=== PATIENT | female | born 1940 | race Caucasian/White ===

== ENCOUNTER → 2017-12-03 | Outpatient (CLI) | payer OTHER, MEDICARE | LOC: CIMAGING 13:43 | PROVIDERS: ATTEND Registered Nurse | DX: T14.90XA Injury, unspecified, initial encounter (principal); W19.XXXA Unspecified fall, initial encounter | CPT/HCPCS: 73502-PO ==

== ENCOUNTER 2018-06-14 10:54 | Inpatient (IN) | payer OTHER, MEDICARE ==
--- NOTE | 2018-06-14 15:49 | GHP ---
POST ADMISSION PHYSICIAN EVALUATION AND REHABILITATION TREATMENT PLAN. DATE OF ADMISSION: 06/14/2018 DATE OF EVALUATION: 06/14/2018. TIME OF EVALUATION: 1405 REFERRING FACILITY: [facility]. IMPAIRMENT GROUP: 1.3. DATE OF ONSET: 06/10/2018. REFERRING PHYSICIAN: Dr. Bundy. CONSULTING PHYSICIANS: Neurologist, Dr. Bowers. REHABILITATION DIAGNOSIS: Cerebrovascular accident with left upper and lower extremity weakness. ETIOLOGIC DIAGNOSIS: Bilateral involvement. HISTORY OF PRESENT ILLNESS: This patient had a 2-3 day history of left upper and lower extremity weakness and falls out of bed. She was brought to [facility] on 06/10/2018. There, an MRI of the brain showed bilateral patchy multifocal infarcts with concern for an embolic source. She had a CT angiogram of the head and neck, and there was no stenosis of the carotid or intracranial arteries. A transthoracic echo was done which showed mild atrial and tricuspid regurgitation, but was otherwise a normal study with no embolic source. She did not have atrial fibrillation on telemetry while in the hospital. In the hospital, losartan was increased from 50 mg daily to 100 mg daily. Aspirin was continued. She was started on a statin as well as clopidogrel, which is to be continued for 3-4 weeks. She was diagnosed with a urinary tract infection and is discharged with cephalexin for 5 more days. She was also started on amlodipine at 5 mg daily for improved blood pressure control. She was otherwise medically stable and ready for rehabilitation. STUDIES AND LABS DURING HER STAY: CBC was normal on 06/10/2018, and 2017. Hemoglobin A1c was 5.9, which is slightly elevated. Lipid panel showed a cholesterol of 239 and HDL of 52 and LDL of 155. Triglycerides were also high at 158. Magnesium was normal. PT and PTT were normal. TSH was normal at 0.86. There was a urinalysis done, which showed a moderate leukocyte esterase, and positive nitrite. There was 2+ bacteria and 21-30 white blood cells seen on microscopic examination. Brain imaging was as discussed in History of Present Illness. Additionally, she had ischemic white matter changes. PRECAUTIONS: She is a fall risk and she has aspiration precautions. ACTIVE COMORBIDITIES: She has a tier 3 comorbidity of hemiparesis. She otherwise has no active tier 1, tier 2, or tier 3 comorbidities. PAST MEDICAL HISTORY: 1. Hypothyroidism. 2. Dyslipidemia. 3. Depression. 4. Hypertension. 5. Bunions. 6. Question of dementia. PAST SURGICAL HISTORY: She has had bilateral bunion surgery and a hysterectomy. PRE-HOSPITAL MEDICATIONS: 1. Losartan 50 mg p.o. daily. 2. Rivastigmine transdermal 9.5 mg per 24 hours daily. 3. Gabapentin 100 mg p.o. daily. 4. Levothyroxine 88 mcg p.o. daily. 5. Venlafaxine 75 mg p.o. daily. 6. Propranolol 160 mg p.o. daily. 7. Red yeast rice 1200 mg p.o. daily. ADMISSION MEDICATIONS: 1. Amlodipine 5 mg p.o. daily. 2. Aspirin 81 mg p.o. daily. 3. Atorvastatin 40 mg p.o. daily. 4. Cephalexin 500 mg twice daily for 5 more days. 5. Clopidogrel 75 mg p.o. daily. 6. Losartan 100 mg p.o. daily. 7. Propranolol 160 mg p.o. daily. 8. Rivastigmine transdermal 9.5 mg per 24 hours daily. 9. Gabapentin 100 mg p.o. daily. 10. Levothyroxine 88 mcg p.o. daily. 11. Venlafaxine XR 75 mg daily. ALLERGIES: There are no known drug allergies. PSYCHOSOCIAL HISTORY: She is and lives with her at [facility]. She had 1 daughter who of melanoma at the age of 41. She is a nonsmoker. Her has 3 children and multiple grandchildren and great-grandchildren, many of whom are local. 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 FAMILY HISTORY: Her mother of old age in her 90s and her father of a suicide at age 19. REVIEW OF SYSTEMS: She reports right knee pain. It does not bother her when she bears weight, but is tender on the medial side. She reports an episode of stool incontinence while she was in the intensive care unit and subsequently had a normal bowel movement after receiving a suppository. She is aware of left -sided weakness. She denies facial weakness, numbness or tingling of the face or the extremities, headache, or vision changes. She denies cough or dyspnea. She denies chest pain or palpitations. She denies nausea, vomiting, diarrhea, or constipation. She denies dysuria or urinary frequency. Otherwise, a 10- point review of systems is negative. PHYSICAL EXAMINATION: VITAL SIGNS: Vitals are not yet available in the chart. However, systolic blood pressure was 140, heart rate was in the 60s, and oxygen saturation was 92% on room air. Her weight is 76.2 kg for a body mass index of 28.8. GENERAL: This is an overweight-appearing woman, dressed in street clothes, lying in bed, cooperative and in no acute distress. HEENT: Extraocular movements are intact. Pupils are equal, round, reactive to light. Mucous members are moist. Dentition is in good condition. She has an uncrowded airway, Mallampati class 2. NECK: Supple. HEART: There is a regular rate and rhythm with no murmurs, rubs, or gallops. LUNGS: Clear to auscultation bilaterally. ABDOMEN: Soft, nontender, nondistended with normoactive bowel sounds and no hepatosplenomegaly. EXTREMITIES: There is no cyanosis or clubbing. There is 1+ edema bilaterally, pretibial. She is tender to palpation on the distal medial right knee over the medial proximal tibia. There is no knee effusion. NEUROLOGIC: She is alert and oriented x3. Cranial nerves 2-12 are grossly intact. Strength is 0/5 at the left shoulder shrug and deltoid, as well as the right hip flexor and right foot dorsiflexion. Strength is 4/5 at the right biceps and 4/5 at the right handgrip. It is 3/5 for the right knee extension. Strength is 5/5 overall on the left side. Sensation is intact to light touch and there is no extinction to double simultaneous stimulation. Deep tendon reflexes are 2+ bilaterally at the biceps, patellar, and Achilles tendons. Plantar reflex is indeterminate bilaterally. CURRENT LEVEL OF FUNCTION: Per the preadmission screen, she was on a regular diet with thin liquids, but she was to be upright 90 degrees for all p.o. intake and remain upright for 30-60 minutes after meals. She had modified independence for feeding after setup. Dressing: The lower body required total assist. Toileting: Required total assistance for perineal hygiene and clothing management. She was noted to be incontinent of urine. Bed mobility required minimal assist to advance her left lower extremity, [id number] transfers were done with contact guard assist and [id number] transfers with minimal assist. She used a Mariah Stedy. Balance required standby assist to contact guard assist. Endurance was fair. She was unable to ambulate. Communication and cognition were considered to be normal. On today's exam, there are no significant changes from the preadmission screen. IMPRESSION: This is a 78-year-old woman who suffered a bilateral cerebrovascular accident, likely occurring over several days with falls at home over 2 days. She was brought to the hospital and was found to have a cerebrovascular accident as described above. Her most prominent symptoms were left upper and lower extremity weakness. In the hospital, she had titration and addition of blood pressure medications, she was started on atorvastatin, and clopidogrel was as added to her aspirin therapy. She was treated for a likely urinary tract infection, though I do not have culture results. However, she had a suggestive urinalysis. She was otherwise medically stabilized and ready for inpatient rehabilitation. Her goal is to complete a rehabilitation stay and then return home to independent living with her . For a safe discharge, it is anticipated that she will become continent of urine. She will tolerate a regular diet. She will have insight into her deficits using appropriate compensatory strategies. She will achieve modified independence for eating and grooming. She may continue to require supervision or assistance for dressing, bathing, transfers and ambulation for short distances. It is likely her primary mobility will be by wheelchair. There will need to be family training. She will have therapy with physical therapy, occupational therapy, and speech and language pathology for 60 minutes per day for each discipline on 5-7 days of the week. Her expected duration of stay is 10-14 days. It is expected that upon discharge she will continue to benefit from home health services including nursing, speech and language pathology, occupational therapy, and physical therapy. She will also benefit from a stroke support group. PLAN: 1. Cerebrovascular accident with left upper and lower extremity weakness. PT and OT to optimize mobility and activities of daily living. 2. Dysphagia to be assessed and treated per Speech and Language Pathology. 3. Secondary stroke prophylaxis. Continue aspirin and clopidogrel together for 3-4 weeks with followup with Dr. Aureliano Bowers. Continue lipid control and blood pressure control. 4. Hypertension with addition of amlodipine, titration of losartan, and continuation of propranolol. Blood pressure will be monitored. Goal is less than 140/90. Medications will be adjusted as needed. 5. Dyslipidemia. Continue atorvastatin. 6. Question of cognitive impairment. Continue rivastigmine transdermal. She will have further assessment per Speech and Language Pathology. 7. Hypothyroidism, continue levothyroxine. 8. Depression. Continue venlafaxine. Hesitate to initiate fluoxetine as per the Flame trial for hemiplegic stroke as depression has been stable on venlafaxine and she is asymptomatic at present and would not like to destabilize her emotional equilibrium. SSRI plus norepinephrine effects of venlafaxine may also enhance neuro recovery. Will consider further discussion with the patient and her . She reports that she takes gabapentin at 100 mg at HS to help calm her. 9.. Right knee pain, possibly consistent with anserine bursitis. She might benefit from icing and this has been ordered on a p.r.n. basis. Also ordered p.r.n. acetaminophen. 10. Prophylaxis. Ordered enoxaparin as she has elevated DVT risk due to left- sided weakness and reduced mobility. As she is also on aspirin and clopidogrel , ordered pantoprazole for GI protection. FOLLOWUP: 1. She has a cardiac event monitor in place and will follow up with Cardiology to evaluate for occult atrial fibrillation. She will follow up with neurologist , Dr. Arueliano Bowers, in 3-4 weeks, or with his colleagues at [facility]. Her primary care doctor is Dr. Bridger Nobles, with whom she can follow up after she discharges from inpatient rehabilitation. /[id number]/MODL MTDD
[2018-06-14] MEDS: ATORVASTATIN CALCIUM 40 MG TAB PO SCH (20:19)
[2018-06-14] MEDS: GABAPENTIN 100 MG CAP PO SCH (20:20)
[2018-06-14] MEDS: CEPHALEXIN 500 MG CAP PO SCH (20:20)
[2018-06-15] MEDS: LEVOTHYROXINE 88 MCG TAB PO SCH (05:33)
[2018-06-15] MEDS: ENOXAPARIN 40 MG/0.4 ML SYR SC SCH (07:12)
[2018-06-15] MEDS: LOSARTAN POTASSIUM 50 MG TAB PO SCH (08:49)
[2018-06-15] MEDS: PANTOPRAZOLE SODIUM 40 MG TAB PO SCH (08:49)
[2018-06-15] MEDS: VENLAFAXINE XR 75 MG CAP PO SCH (08:49)
[2018-06-15] MEDS: ASPIRIN 81 MG CHEWABLE TAB PO SCH (08:49)
[2018-06-15] MEDS: CEPHALEXIN 500 MG CAP PO SCH ×2 (08:50→20:43)
[2018-06-15] MEDS: amLODIPine BESYLATE 5 MG TAB PO SCH (08:50)
[2018-06-15] MEDS: CLOPIDOGREL BISULFATE 75 MG TAB PO SCH (08:50)
[2018-06-15] MEDS ORDERED: GABAPENTIN 100 MG CAP PO SCH (09:00)
--- NOTE | 2018-06-15 11:55 | PDOREHIP ---
Admission [facility] - Admission - 3 Day Assessment Period Admission Date/Day 1: 06/14/18 Day 2: 06/15/18 Day 3: 06/16/18 - Active Diagnoses Comorbidities and Co-existing Conditions at Admission: 06127. None of the Above - Skin Conditions # Stage 1 Pressure Ulcers-Admission: 0 # Stage 2 Pressure Ulcers-Admission: 0 # Stage 3 Pressure Ulcers-Admission: 0 # Stage 4 Pressure Ulcers-Admission: 0 # Unstageable Pressure Ulcers (Non-remove Dress)-Admission: 0 # Unstageable Pressure Ulcers (Slough/Eschar)-Admission: 0 # Unstageable Pressure Ulcers (Deep Tissue Injury)-Admission: 0
--- NOTE | 2018-06-15 12:04 | SOAPPROG ---
SOAP Progress Note Assessment/Plan: Assessment: Cerebrovascular accident with left upper and left lower extremity weakness. She is getting some return of motor function in both the left upper and left lower extremity muscles. Physical occupational therapy to optimize mobility and activities of daily living. Dysphagia-pending evaluation with speech and language pathology. Secondary stroke prophylaxis. Continue aspirin and clopidogrel together for 3- 4 weeks and follow-up with Dr. Aureliano August. Continue lipid control. Continue blood pressure control. Hypertension. Continue amlodipine. Continue losartan. Continue propranolol. Blood pressures monitored Q shift. Goals less than 140/90.Blood pressure 136/65. Dyslipidemia. Continue atorvastatin Question of cognitive impairment-will have better assessment of this once POULTRY PICKER completes evaluation. Continue Rivastigmine transdermal. Hypothyroidism. Continue levothyroxine Depression. Continue Venlafaxine. Dr. Cole indicated on his admission H&P that he is hesitant to initiate fluoxetine as per the flame trial for hemiplegic stroke as depression has been stable on Venlafaxine and she is asymptomatic at present and would not like to destabilized her out emotional equilibrium. Will continue to monitor for depression as patient does have a depressed affect today. Will ask speech and language pathology opinion as to whether depression may decreased cognitive function. Right knee pain. Patient did not complain of right knee pain this morning but will continue to follow for possible anserine bursitis. Tylenol p.r.n.. Ice 20 min medial aspect right knee p.r.n.. Prophylaxis. Enoxaparin started yesterday by Dr. Cole as patient is at increased DVT risk due to left-sided zamzam paresis and reduced mobility. Since she is on aspirin and clopidogrel, pantoprazole initiated yesterday. Urinary tract infection-continue Keflex Neuropathic pain-continue Keflex Follow-up: She has a cardiac event monitor in place and will follow up with Cardiology to evaluate any occult atrial fibrillation. She will follow up with neurologist, Dr. Aureliano Bowers in 3-4 weeks or with his colleagues at [facility]. Her primary doctor is Dr. Bridger Nobles who she can follow up with after discharge from inpatient rehab Plan: 06/15/18 12:06 18 12:17 06/15/18 12:17 Subjective: Patient states"I can not believe I had a stroke"she reports weakness in the left arm and leg. She denies headache. Denies neck pain. Denies shoulder girdle pain. She does not report UTI type symptoms. Objective: Vital Signs Temp Pulse Resp BP Pulse Ox 36.6 C 62 16 136/65 H 94 06/15/18 05:52 06/15/18 05:52 06/15/18 05:52 06/15/18 08:50 06/15/18 05:52 06/14/18 06/15/18 06/16/18 05:59 05:59 05:59 Intake Total 820 Balance 820 Physical Exam - Physical Exam General Appearance: WD/WN, alert, no apparent distress, other (Sitting in wheelchair. Erect posture) Neck: non-tender, full range of motion Respiratory: lungs clear, normal breath sounds Cardiac/Chest: No edema Abdomen: normal bowel sounds, non-tender, soft, other (No suprapubic tenderness) Skin: warm/dry Extremities: normal range of motion (Limited left glenohumeral and elbow range of motion secondary to hemiparesis. Normal passive left shoulder forward flexion, abduction, internal/external rotation), No swelling, No Radha's sign Neuro/Psych: motor weakness (Left hemiparesis with greater strength distally in left upper extremity can almost fully extend the left wrist. 3-/5 left hip flexors 3+/5 left ankle dorsiflexors), depressed affect ICD10 Worksheet Patient Problems: Problems Problem Status Onset CVA (cerebral vascular accident) Acute
[2018-06-15] MEDS: PROPRANOLOL HCL 160 MG PO SCH (15:53)
[2018-06-15] MEDS: RIVASTIGMINE TD SCH (15:54)
[2018-06-15] MEDS: ATORVASTATIN CALCIUM 40 MG TAB PO SCH (20:43)
[2018-06-15] MEDS: GABAPENTIN 100 MG CAP PO SCH (20:43)
[2018-06-16] MEDS: LEVOTHYROXINE 88 MCG TAB PO SCH (06:12)
[2018-06-16] MEDS: ASPIRIN 81 MG CHEWABLE TAB PO SCH (09:20)
[2018-06-16] MEDS: CEPHALEXIN 500 MG CAP PO SCH ×2 (09:20→19:46)
[2018-06-16] MEDS: amLODIPine BESYLATE 5 MG TAB PO SCH (09:20)
[2018-06-16] MEDS: PANTOPRAZOLE SODIUM 40 MG TAB PO SCH (09:20)
[2018-06-16] MEDS: LOSARTAN POTASSIUM 50 MG TAB PO SCH (09:20)
[2018-06-16] MEDS: CLOPIDOGREL BISULFATE 75 MG TAB PO SCH (09:20)
[2018-06-16] MEDS: VENLAFAXINE XR 75 MG CAP PO SCH (09:20)
[2018-06-16] MEDS: ENOXAPARIN 40 MG/0.4 ML SYR SC SCH (09:21)
[2018-06-16] MEDS: RIVASTIGMINE TD SCH (09:27)
[2018-06-16] MEDS: PROPRANOLOL HCL 160 MG PO SCH (09:28)
--- NOTE | 2018-06-16 09:30 | SOAPPROG ---
SOAP Progress Note Assessment/Plan: Assessment: Cerebrovascular accident with left upper and left lower extremity weakness. She is getting some return of motor function in both the left upper and left lower extremity muscles. She is getting some return of her left elbow flexors and external rotators. Hopefully she will begin to get some return of her left deltoid. Physical occupational therapy to optimize mobility and activities of daily living. Physical therapy to address left ankle plantar flexor tone. She may benefit from electrical stimulation of the shoulder girdle muscles and biceps. Will discuss with physical therapy. Dysphagia-pending evaluation with speech and language pathology. Secondary stroke prophylaxis. Continue aspirin and clopidogrel together for 3- 4 weeks and follow-up with Dr. Aureliano August. Continue lipid control. Continue blood pressure control. Hypertension. Continue amlodipine. Continue losartan. Continue propranolol. Blood pressures monitored Q shift. Goals less than 140/90.Blood pressure 06/16 137/82. Dyslipidemia. Continue atorvastatin Question of cognitive impairment-will have better assessment of this once PHYSICAL THERAPIST CENTER MANAGER completes evaluation. Continue Rivastigmine transdermal. Hypothyroidism. Continue levothyroxine Depression. Continue Venlafaxine. Dr. Cole indicated on his admission H&P that he is hesitant to initiate fluoxetine as per the flame trial for hemiplegic stroke as depression has been stable on Venlafaxine and she is asymptomatic at present and would not like to destabilize her out emotional equilibrium. Will continue to monitor for depression as patient does have a depressed affect today. Will ask speech and language pathology opinion as to whether depression may decreased cognitive function. Right knee pain. Patient did not complain of right knee pain this morning but will continue to follow for possible anserine bursitis. Tylenol p.r.n.. Ice 20 min medial aspect right knee p.r.n.. Prophylaxis. Enoxaparin started by Dr. Cole as patient is at increased DVT risk due to left-sided zamzam paresis and reduced mobility. Since she is on aspirin and clopidogrel, pantoprazole initiated yesterday. Urinary tract infection-continue Keflex Neuropathic pain-continue gabapentin Follow-up: She has a cardiac event monitor in place and will follow up with Cardiology to evaluate any occult atrial fibrillation. She will follow up with neurologist, Dr. Aureliano Bowers in 3-4 weeks or with his colleagues at [facility]. Her primary doctor is Dr. Bridger Nobles who she can follow up with after discharge from inpatient rehab Subjective: She reports frustration over lack of improvement in left upper extremity strength. She denies left upper extremity or left lower extremity pain. Denies left shoulder girdle pain. Objective: Vital Signs Temp Pulse Resp BP Pulse Ox 36.7 C 69 16 142/75 H 96 06/16/18 06:56 06/16/18 06:56 06/16/18 06:56 06/16/18 09:20 06/16/18 06:56 06/15/18 06/16/18 06/17/18 05:59 05:59 05:59 Intake Total 820 500 Output Total 100 Balance 820 400 Physical Exam - Physical Exam General Appearance: WD/WN, alert, no apparent distress Respiratory: lungs clear, normal breath sounds Abdomen: normal bowel sounds, non-tender, soft Skin: warm/dry Extremities: No swelling, No Radha's sign Neuro/Psych: motor weakness (Left hemiparesis affecting left lower extremity greater than left upper extremity. She is able to actively dorsiflex the left wrist and fingers to a lesser extent. She does have antigravity elbow flexion and can externally rotate the left shoulder when the elbow is flexed in place that side. She has not had any return of her anterior middle deltoid. Left hip flexors 2-/5, left quadriceps 2+ 3-/5 slight increase in left plantar flexor tone.) ICD10 Worksheet Patient Problems: Problems Problem Status Onset CVA (cerebral vascular accident) Acute
[2018-06-16] MEDS: DICLOFENAC SODIUM 50 MG TAB PO SCH ×2 (14:31→19:46)
[2018-06-16] MEDS: GABAPENTIN 100 MG CAP PO SCH (19:45)
[2018-06-16] MEDS: ATORVASTATIN CALCIUM 40 MG TAB PO SCH (19:46)
[2018-06-17] MEDS: LEVOTHYROXINE 88 MCG TAB PO SCH (06:28)
[2018-06-17] MEDS: CLOPIDOGREL BISULFATE 75 MG TAB PO SCH (08:38)
[2018-06-17] MEDS: ASPIRIN 81 MG CHEWABLE TAB PO SCH (08:39)
[2018-06-17] MEDS: PANTOPRAZOLE SODIUM 40 MG TAB PO SCH (08:39)
[2018-06-17] MEDS: VENLAFAXINE XR 75 MG CAP PO SCH (08:39)
[2018-06-17] MEDS: CEPHALEXIN 500 MG CAP PO SCH ×2 (08:39→20:56)
[2018-06-17] MEDS: DICLOFENAC SODIUM 50 MG TAB PO SCH ×2 (08:39→20:57)
[2018-06-17] MEDS: ENOXAPARIN 40 MG/0.4 ML SYR SC SCH (08:39)
[2018-06-17] MEDS: LOSARTAN POTASSIUM 50 MG TAB PO SCH (08:43)
[2018-06-17] MEDS: amLODIPine BESYLATE 5 MG TAB PO SCH (08:43)
[2018-06-17] MEDS: PROPRANOLOL HCL 160 MG PO SCH (08:51)
[2018-06-17] MEDS: RIVASTIGMINE TD SCH (09:25)
[2018-06-17] MEDS: OXYBUTYNIN CHLORIDE 5 MG TAB PO SCH ×2 (17:12→20:57)
[2018-06-17] MEDS: ATORVASTATIN CALCIUM 40 MG TAB PO SCH (20:56)
[2018-06-17] MEDS: GABAPENTIN 100 MG CAP PO SCH (20:56)
[2018-06-18] MEDS: LEVOTHYROXINE 88 MCG TAB PO SCH (05:41)
[2018-06-18] MEDS: CLOPIDOGREL BISULFATE 75 MG TAB PO SCH (08:05)
[2018-06-18] MEDS: DICLOFENAC SODIUM 50 MG TAB PO SCH ×2 (08:05→20:39)
[2018-06-18] MEDS: PANTOPRAZOLE SODIUM 40 MG TAB PO SCH (08:06)
[2018-06-18] MEDS: OXYBUTYNIN CHLORIDE 5 MG TAB PO SCH ×3 (08:06→20:50)
[2018-06-18] MEDS: CEPHALEXIN 500 MG CAP PO SCH ×2 (08:06→20:39)
[2018-06-18] MEDS: amLODIPine BESYLATE 5 MG TAB PO SCH (08:07)
[2018-06-18] MEDS: VENLAFAXINE XR 75 MG CAP PO SCH (08:07)
[2018-06-18] MEDS: LOSARTAN POTASSIUM 50 MG TAB PO SCH (08:09)
[2018-06-18] MEDS: ENOXAPARIN 40 MG/0.4 ML SYR SC SCH (08:09)
[2018-06-18] MEDS: ASPIRIN 81 MG CHEWABLE TAB PO SCH (08:09)
[2018-06-18] MEDS: RIVASTIGMINE TD SCH (08:09)
[2018-06-18] MEDS: PROPRANOLOL HCL 160 MG PO SCH (08:11)
--- NOTE | 2018-06-18 12:44 | HOSPPROG ---
Hospitalist Progress Note Assessment/Plan: Cerebrovascular accident with left upper and left lower extremity weakness. She is getting some return of motor function in both the left upper and left lower extremity muscles. She is getting some return of her left elbow flexors and external rotators. Hopefully she will begin to get some return of her left deltoid. Physical occupational therapy to optimize mobility and activities of daily living. Physical therapy to address left ankle plantar flexor tone. She may benefit from electrical stimulation of the shoulder girdle muscles and biceps. Will discuss with physical therapy. Dysphagia-pending evaluation with speech and language pathology. Secondary stroke prophylaxis. Continue aspirin and clopidogrel together for 3- 4 weeks and follow-up with Dr. Aureliano August. Continue lipid control. Continue blood pressure control. Hypertension. Continue amlodipine. Continue losartan. Continue propranolol. Blood pressures monitored Q shift. Goals less than 140/90.Blood pressure 06/16 137/82. Dyslipidemia. Continue atorvastatin Question of cognitive impairment-will have better assessment of this once DRUM OPERATOR completes evaluation. Continue Rivastigmine transdermal. Hypothyroidism. Continue levothyroxine Depression. Continue Venlafaxine. Dr. Cole indicated on his admission H&P that he is hesitant to initiate fluoxetine as per the flame trial for hemiplegic stroke as depression has been stable on Venlafaxine and she is asymptomatic at present and would not like to destabilize her out emotional equilibrium. Will continue to monitor for depression as patient does have a depressed affect today. Will ask speech and language pathology opinion as to whether depression may decreased cognitive function. Right knee pain. Patient did not complain of right knee pain this morning but will continue to follow for possible anserine bursitis. Tylenol p.r.n.. Ice 20 min medial aspect right knee p.r.n.. * getting better today Prophylaxis. Enoxaparin started by Dr. Cole as patient is at increased DVT risk due to left-sided zamzam paresis and reduced mobility. Since she is on aspirin and clopidogrel, pantoprazole initiated yesterday. Urinary tract infection-continue Keflex Urinary incontinence - can consider medication but will wait Neuropathic pain-continue bladder training Follow-up: She has a cardiac event monitor in place and will follow up with Cardiology to evaluate any occult atrial fibrillation. She will follow up with neurologist, Dr. Aureliano Bowers in 3-4 weeks or with his colleagues at [facility]. Her primary doctor is Dr. Bridger Nobles who she can follow up with after discharge from inpatient rehab Subjective: knee feeling better. still doesn't believe she had a stroke Objective: Vital Signs Temp Pulse Resp BP Pulse Ox 36.8 C 61 18 149/83 H 92 06/18/18 06:46 06/18/18 06:46 06/18/18 06:46 06/18/18 08:07 06/18/18 06:46 06/17/18 06/18/18 06/19/18 05:59 05:59 05:59 Intake Total 100 1380 Output Total 450 Balance -350 1380 - Physical Exam Constitutional: no apparent distress, appears nourished, not in pain Eyes: anicteric sclera, EOMI Ears, Nose, Mouth, Throat: moist mucous membranes, hearing normal, ears appear normal, no oral mucosal ulcers Cardiovascular: regular rate and rhythym, no murmur, rub, or gallop Respiratory: no respiratory distress, no rales or rhonchi, clear to auscultation Skin: warm Neurologic: AAOx3 Psychiatric: interacting appropriately, not anxious, not encephalopathic, thought process linear ICD10 Worksheet Patient Problems: Problems Problem Status Onset CVA (cerebral vascular accident) Acute
[2018-06-18] MEDS ORDERED: ONDANSETRON DISINTEGRATING 4 MG TAB PO PRN (15:55)
[2018-06-18] MEDS: ATORVASTATIN CALCIUM 40 MG TAB PO SCH (20:39)
[2018-06-18] MEDS: GABAPENTIN 100 MG CAP PO SCH (20:39)
[2018-06-19] MEDS: LEVOTHYROXINE 88 MCG TAB PO SCH (06:31)
[2018-06-19] MEDS: amLODIPine BESYLATE 5 MG TAB PO SCH (08:59)
[2018-06-19] MEDS: PANTOPRAZOLE SODIUM 40 MG TAB PO SCH (08:59)
[2018-06-19] MEDS: LOSARTAN POTASSIUM 50 MG TAB PO SCH (08:59)
[2018-06-19] MEDS: OXYBUTYNIN CHLORIDE 5 MG TAB PO SCH ×3 (08:59→20:39)
[2018-06-19] MEDS: DICLOFENAC SODIUM 50 MG TAB PO SCH ×2 (08:59→20:23)
[2018-06-19] MEDS: CLOPIDOGREL BISULFATE 75 MG TAB PO SCH (09:00)
[2018-06-19] MEDS: ASPIRIN 81 MG CHEWABLE TAB PO SCH (09:00)
[2018-06-19] MEDS: PROPRANOLOL HCL 160 MG PO SCH (09:00)
[2018-06-19] MEDS: RIVASTIGMINE TD SCH (09:00)
[2018-06-19] MEDS: VENLAFAXINE XR 75 MG CAP PO SCH (09:00)
[2018-06-19] MEDS: CEPHALEXIN 500 MG CAP PO SCH (09:00)
[2018-06-19] MEDS: ENOXAPARIN 40 MG/0.4 ML SYR SC SCH (09:05)
--- NOTE | 2018-06-19 12:21 | HOSPPROG ---
Hospitalist Progress Note Assessment/Plan: Cerebrovascular accident with left upper and left lower extremity weakness. She is getting some return of motor function in both the left upper and left lower extremity muscles. She is getting some return of her left elbow flexors and external rotators. Hopefully she will begin to get some return of her left deltoid. Physical occupational therapy to optimize mobility and activities of daily living. Physical therapy to address left ankle plantar flexor tone. She may benefit from electrical stimulation of the shoulder girdle muscles and biceps. Will discuss with physical therapy. Dysphagia-pending evaluation with speech and language pathology. Secondary stroke prophylaxis. Continue aspirin and clopidogrel together for 3- 4 weeks and follow-up with Dr. Aureliano August. Continue lipid control. Continue blood pressure control. Hypertension. Continue amlodipine. Continue losartan. Continue propranolol. Blood pressures monitored Q shift. Goals less than 140/90.Blood pressure 06/16 137/82. Dyslipidemia. Continue atorvastatin Question of cognitive impairment-will have better assessment of this once GOLD [facility]ER completes evaluation. Continue Rivastigmine transdermal. Hypothyroidism. Continue levothyroxine Depression. Continue Venlafaxine. Dr. Cole indicated on his admission H&P that he is hesitant to initiate fluoxetine as per the flame trial for hemiplegic stroke as depression has been stable on Venlafaxine and she is asymptomatic at present and would not like to destabilize her out emotional equilibrium. Will continue to monitor for depression as patient does have a depressed affect today. Will ask speech and language pathology opinion as to whether depression may decreased cognitive function. Right knee pain. Patient did not complain of right knee pain this morning but will continue to follow for possible anserine bursitis. Tylenol p.r.n.. Ice 20 min medial aspect right knee p.r.n.. * getting better today Prophylaxis. Enoxaparin started by Dr. Cole as patient is at increased DVT risk due to left-sided zamzam paresis and reduced mobility. Since she is on aspirin and clopidogrel, pantoprazole initiated yesterday. Urinary tract infection-continue Keflex Urinary incontinence - can consider medication but will wait Neuropathic pain-continue bladder training Follow-up: She has a cardiac event monitor in place and will follow up with Cardiology to evaluate any occult atrial fibrillation. She will follow up with neurologist, Dr. Aureliano Bowers in 3-4 weeks or with his colleagues at [facility]. Her primary doctor is Dr. Bridger Nobles who she can follow up with after discharge from inpatient rehab Subjective: no new complaints. doing well with therapy. working to accept the stroke Objective: Vital Signs Temp Pulse Resp BP Pulse Ox 36.7 C 58 L 16 138/82 H 93 06/19/18 06:54 06/19/18 06:54 06/19/18 06:54 06/19/18 08:59 06/19/18 06:54 06/18/18 06/19/18 06/20/18 05:59 05:59 05:59 Intake Total 1380 400 Balance 1380 400 - Physical Exam Constitutional: no apparent distress, appears nourished, not in pain Eyes: anicteric sclera, EOMI Ears, Nose, Mouth, Throat: moist mucous membranes Cardiovascular: regular rate and rhythym Respiratory: no respiratory distress, no rales or rhonchi, clear to auscultation Gastrointestinal: normoactive bowel sounds, soft, non-tender abdomen, no palpable masses Skin: warm Neurologic: AAOx3, weakness (left side) Psychiatric: interacting appropriately, not anxious, not encephalopathic, thought process linear ICD10 Worksheet Patient Problems: Problems Problem Status Onset CVA (cerebral vascular accident) Acute
[2018-06-19] MEDS: GABAPENTIN 100 MG CAP PO SCH (20:23)
[2018-06-19] MEDS: ATORVASTATIN CALCIUM 40 MG TAB PO SCH (20:23)
[2018-06-20] MEDS: LEVOTHYROXINE 88 MCG TAB PO SCH (05:27)
[2018-06-20] MEDS: PANTOPRAZOLE SODIUM 40 MG TAB PO SCH (08:55)
[2018-06-20] MEDS: OXYBUTYNIN CHLORIDE 5 MG TAB PO SCH ×2 (08:55→15:33)
[2018-06-20] MEDS: amLODIPine BESYLATE 5 MG TAB PO SCH (08:55)
[2018-06-20] MEDS: ASPIRIN 81 MG CHEWABLE TAB PO SCH (08:55)
[2018-06-20] MEDS: CLOPIDOGREL BISULFATE 75 MG TAB PO SCH (08:55)
[2018-06-20] MEDS: DICLOFENAC SODIUM 50 MG TAB PO SCH (08:55)
[2018-06-20] MEDS: VENLAFAXINE XR 75 MG CAP PO SCH (08:55)
[2018-06-20] MEDS: LOSARTAN POTASSIUM 50 MG TAB PO SCH (08:56)
[2018-06-20] MEDS: PROPRANOLOL HCL 160 MG PO SCH (09:05)
[2018-06-20] MEDS: RIVASTIGMINE TD SCH (09:06)
[2018-06-20] MEDS: ENOXAPARIN 40 MG/0.4 ML SYR SC SCH (10:34)
--- NOTE | 2018-06-20 14:47 | SOAPPROG ---
SOAP Progress Note Assessment/Plan: Assessment: Cerebrovascular accident with left upper and lower extremity weakness and left hemineglect. * Initial functional independence measure is 51 on 06/15/2018. Moderate assist for bed mobility and transfer. Has taken a few steps in parallel bars. Standby assist for upper body dressing, standby to contact guard assist for lower body dressing. Left hemineglect and motor apraxia. * Continue PT and OT to optimize mobility and activities of daily living. Cognitive impairment. * Moderate to severe impairments of attention, communication, problem solving, judgment, safety, executive function, memory, orientation. OLOG of . * Unclear whether transdermal rivastigmine has been effective. Will explore further with family. * Continue treatment per Speech and Language Pathology. Urinary incontinence. * Not improved with oxybutynin; will discontinue 06/20/2018. * Treated for a UTI while she was in the hospital, and no signs or symptoms of current UTI. * Consider discontinuation of rivastigmine if family does not feel it has improved her cognition/memory. Secondary stroke prophylaxis. Continue aspirin and clopidogrel together for 3- 4 weeks with followup with Dr. Aureliano Bowers. Continue lipid control and blood pressure control. Hypertension, adequate control. * Continue amlodipine 5 mg daily, losartan 100 mg daily, propranolol 160 mg daily. Blood pressure will be monitored. Goal is less than 140/90. Dyslipidemia. Continue atorvastatin. Dysphagia, resolved. Advanced to regular texture diet and thin liquids. Hypothyroidism, continue levothyroxine. Depression. Continue venlafaxine. Hesitate to initiate fluoxetine as per the Flame trial for hemiplegic stroke as depression has been stable on venlafaxine and she is asymptomatic at present and would not like to destabilize her emotional equilibrium. SSRI plus norepinephrine effects of venlafaxine may also enhance neuro recovery. She reports that she takes gabapentin at 100 mg at HS to help calm her. Right knee pain, possibly consistent with anserine bursitis. * Normal XR on 06/16/2018. * Continue icing prn, acetaminophen prn,. * Discontinue diclofenac 50 mg PO twice daily on 06/20/2018 due to elevated risk for GI ulceration with [place] mutant aspirin, clopidogrel and enoxaparin. * Trial of diclofenac gel topical. Prophylaxis. Ordered enoxaparin as she has elevated DVT risk due to left-sided weakness and reduced mobility. As she is also on aspirin and clopidogrel, ordered pantoprazole for GI protection. DISPOSITION: Concerned regarding cognition of patient as well as . They live at an independent living facility. They may need a higher level of care. Tentative discharge date set for 07/07/2018. FOLLOWUP: She has a cardiac event monitor in place and will follow up with Cardiology to evaluate for occult atrial fibrillation. She will follow up with neurologist, Dr. Aureliano Bowers, in 3-4 weeks, or with his colleagues at [facility]. Her primary care doctor is Dr. Bridger Nobles, with whom she can follow up after she discharges from inpatient rehabilitation. 06/20/18 15:34 Subjective: No complaints. Sleeping well. Is aware of difficulty with function of her left hand. Has medial right knee pain and does not think that current medications have improved it. Objective: Vital Signs Temp Pulse Resp BP Pulse Ox 36.5 C 60 18 127/67 H 94 06/20/18 09:00 06/20/18 05:48 06/20/18 05:48 06/20/18 08:55 06/20/18 05:48 06/19/18 06/20/18 06/21/18 05:59 05:59 05:59 Intake Total 400 440 615 Output Total 150 Balance 400 440 465 Physical Exam - Physical Exam General Appearance: WD/WN, alert, no apparent distress Respiratory: No respiratory distress, No accessory muscle use Skin: normal color, warm/dry Neuro/Psych: alert, normal mood/affect, motor weakness (Apraxia left upper extremity) ICD10 Worksheet Patient Problems: Problems Problem Status Onset CVA (cerebral vascular accident) Acute
[2018-06-20] MEDS: DICLOFENAC SODIUM 1% 100 GM GEL TP SCH ×2 (19:06→20:42)
[2018-06-20] MEDS: ATORVASTATIN CALCIUM 40 MG TAB PO SCH (20:42)
[2018-06-20] MEDS: GABAPENTIN 100 MG CAP PO SCH (20:42)
[2018-06-21] MEDS: LEVOTHYROXINE 88 MCG TAB PO SCH (05:45)
[2018-06-21] MEDS: DICLOFENAC SODIUM 1% 100 GM GEL TP SCH ×5 (05:46→20:21)
[2018-06-21] MEDS: amLODIPine BESYLATE 5 MG TAB PO SCH (08:01)
[2018-06-21] MEDS: ASPIRIN 81 MG CHEWABLE TAB PO SCH (08:10)
[2018-06-21] MEDS: CLOPIDOGREL BISULFATE 75 MG TAB PO SCH (08:10)
[2018-06-21] MEDS: LOSARTAN POTASSIUM 50 MG TAB PO SCH (08:11)
[2018-06-21] MEDS: PANTOPRAZOLE SODIUM 40 MG TAB PO SCH (08:11)
[2018-06-21] MEDS: ENOXAPARIN 40 MG/0.4 ML SYR SC SCH (08:11)
[2018-06-21] MEDS: VENLAFAXINE XR 75 MG CAP PO SCH (08:12)
[2018-06-21] MEDS: RIVASTIGMINE TD SCH (08:13)
[2018-06-21] MEDS: PROPRANOLOL HCL 160 MG PO SCH (08:13)
[2018-06-21] MEDS ORDERED: POLYETHYLENE GLYCOL 3350 17 GM PKT PO PRN (10:13)
[2018-06-21] MEDS ORDERED: BISACODYL 10 MG SUPP PR PRN (10:13)
[2018-06-21] MEDS ORDERED: BENEFIBER/NUTRISOURCE FIBER PKT 1 EACH PO PRN (10:13)
--- NOTE | 2018-06-21 10:39 | SOAPPROG ---
SOAP Progress Note Assessment/Plan: 78-year-old woman with bilateral multi focal strokes with bilateral weakness and zamzam inattention, impairments in mobility and self-care as well as cognition Today's update: Overall making slow rehabilitation progress, continues to have right-sided knee pain treated with baclofen act patch. Has not had a bowel movement a couple of days, prescribing rehab bowel program including a Dulcolax suppository. Continuing therapies for impairments in mobility, self-care, cognition. Urinary incontinence was controlled yesterday was scheduled voids per nursing. Obtaining an ECG today in the setting of rivastigmine and the absence of a baseline ECG in our records. Unable to find prior. A total of 25 min was spent on the floor in the care of the patient, the majority of which was spent counseling coordination of care regarding rehab progress Additional issues reviewed without change today include secondary stroke prophylaxis, hypertension (slightly elevated today but generally within range, monitoring), dyslipidemia, dysphagia, hypothyroidism, depression, right knee pain, DVT prophylaxis. 06/21/18 10:27 Subjective: Chief complaint: Rehab progress No acute events overnight. Patient denies any new shortness of breath or chest pain, no new numbness, tingling, or weakness. Nursing notes that urinary incontinence was completely controlled with scheduled voids yesterday. She continues to have some right-sided knee pain on the medial aspect, diclofenac is been somewhat helpful. She is looking for to learning more about her overall prognosis. Feels that rehab is been going well. Nursing also notes that the left-sided zamzam inattention is still present, does not have a lot additional information. Objective: Vital Signs Temp Pulse Resp BP Pulse Ox 36.7 C 63 16 132/73 H 94 06/21/18 05:36 06/21/18 05:36 06/21/18 05:36 06/21/18 08:11 06/21/18 05:36 06/20/18 06/21/18 06/22/18 05:59 05:59 05:59 Intake Total 440 855 200 Output Total 150 Balance 440 705 200 Physical Exam - Physical Exam General Appearance: WD/WN, alert, no apparent distress EENT: No scleral icterus (R), No scleral icterus (L) Respiratory: No respiratory distress, No accessory muscle use Cardiac/Chest: normal peripheral pulses, regular rate, rhythm, No edema Abdomen: other (Bruising from injections) Skin: normal color, warm/dry, No cyanosis, No diaphoresis Extremities: No swelling Neuro/Psych: alert, normal mood/affect, oriented x 3 (Strength was 4/5 in left- sided die trimmer, notes that sensation is equal symmetrically to light touch), other ( Right-sided gaze preference) ICD10 Worksheet Patient Problems: Problems Problem Status Onset CVA (cerebral vascular accident) Acute
[2018-06-21] MEDS: SENNOSIDES/DOCUSATE SODIUM TAB PO SCH ×2 (15:04→20:21)
[2018-06-21] MEDS: GABAPENTIN 100 MG CAP PO SCH (20:21)
[2018-06-21] MEDS: ATORVASTATIN CALCIUM 40 MG TAB PO SCH (20:21)
[2018-06-22] MEDS: LEVOTHYROXINE 88 MCG TAB PO SCH (05:40)
[2018-06-22] MEDS: DICLOFENAC SODIUM 1% 100 GM GEL TP SCH ×4 (05:41→21:15)
[2018-06-22] MEDS: RIVASTIGMINE TD SCH (08:39)
[2018-06-22] MEDS: PROPRANOLOL HCL 160 MG PO SCH (08:40)
[2018-06-22] MEDS: LOSARTAN POTASSIUM 50 MG TAB PO SCH (08:41)
[2018-06-22] MEDS: SENNOSIDES/DOCUSATE SODIUM TAB PO SCH ×2 (08:41→20:36)
[2018-06-22] MEDS: ENOXAPARIN 40 MG/0.4 ML SYR SC SCH (08:42)
[2018-06-22] MEDS: CLOPIDOGREL BISULFATE 75 MG TAB PO SCH (08:42)
[2018-06-22] MEDS: PANTOPRAZOLE SODIUM 40 MG TAB PO SCH (08:42)
[2018-06-22] MEDS: amLODIPine BESYLATE 5 MG TAB PO SCH (08:42)
[2018-06-22] MEDS: ASPIRIN 81 MG CHEWABLE TAB PO SCH (08:42)
[2018-06-22] MEDS: VENLAFAXINE XR 75 MG CAP PO SCH (08:49)
--- NOTE | 2018-06-22 11:36 | SOAPPROG ---
SOAP Progress Note Assessment/Plan: Assessment: Cerebrovascular accident with left upper and lower extremity weakness and left hemineglect. * Initial functional independence measure is 51 on 06/15/2018. Moderate assist for bed mobility and transfer. Has taken a few steps in parallel bars. Standby assist for upper body dressing, standby to contact guard assist for lower body dressing. Left hemineglect and motor apraxia. * Continue PT and OT to optimize mobility and activities of daily living. Cognitive impairment. * Moderate to severe impairments of attention, communication, problem solving, judgment, safety, executive function, memory, orientation. OLOG of . * Unclear whether transdermal rivastigmine has been effective. Will explore further with family. * Continue treatment per Speech and Language Pathology. Urinary incontinence. * Not improved with oxybutynin; will discontinue 06/20/2018. * Treated for a UTI while she was in the hospital, and no signs or symptoms of current UTI. * Consider discontinuation of rivastigmine if family does not feel it has improved her cognition/memory. However today, 06/22/2018, patient and indicate that urinary incontinence has been going on for years and likely predates the initiation of rivastigmine. * Continue scheduled toileting. Secondary stroke prophylaxis. Continue aspirin and clopidogrel together for 3- 4 weeks with followup with Dr. Aureliano Bowers. Continue lipid control and blood pressure control. Question of past to go home with for [place] will depend on her mobility and ability to make transfers including in out of a vehicle. Await further assessment by PT and OT. Hypertension, adequate control. * Continue amlodipine 5 mg daily, losartan 100 mg daily, propranolol 160 mg daily. Blood pressure will be monitored. Goal is less than 140/90. Dyslipidemia. Continue atorvastatin. Dysphagia, resolved. Advanced to regular texture diet and thin liquids. Hypothyroidism, continue levothyroxine. Depression. Continue venlafaxine. Hesitate to initiate fluoxetine as per the Flame trial for hemiplegic stroke as depression has been stable on venlafaxine and she is asymptomatic at present and would not like to destabilize her emotional equilibrium. SSRI plus norepinephrine effects of venlafaxine may also enhance neuro recovery. She reports that she takes gabapentin at 100 mg at HS to help calm her. Right knee pain, possibly consistent with anserine bursitis. * Normal XR on 06/16/2018. * Continue icing prn, acetaminophen prn,. * Discontinue diclofenac 50 mg PO twice daily on 06/20/2018 due to elevated risk for GI ulceration with [place] mutant aspirin, clopidogrel and enoxaparin. * Trial of diclofenac gel topical. Prophylaxis. Ordered enoxaparin as she has elevated DVT risk due to left-sided weakness and reduced mobility. As she is also on aspirin and clopidogrel, ordered pantoprazole for GI protection. DISPOSITION: Concerned regarding cognition of patient as well as . They live at an independent living facility. They may need a higher level of care. Tentative discharge date set for 07/07/2018. FOLLOWUP: She has a cardiac event monitor in place and will follow up with Cardiology to evaluate for occult atrial fibrillation. She will follow up with neurologist, Dr. Aureliano Bowers, in 3-4 weeks, or with his colleagues at [facility]. Her primary care doctor is Dr. Bridger Nobles, with whom she can follow up after she discharges from inpatient rehabilitation. 06/22/18 11:12 Subjective: No complaints. Slept well. Not in pain. requests past to go home on [place]. Objective: Vital Signs Temp Pulse Resp BP Pulse Ox 36.3 C 63 16 139/85 H 95 06/22/18 06:33 06/22/18 06:33 06/22/18 06:33 06/22/18 08:42 06/22/18 06:33 06/21/18 06/22/18 06/23/18 05:59 05:59 05:59 Intake Total 855 1040 Output Total 150 300 Balance 705 740 Physical Exam - Physical Exam General Appearance: WD/WN, alert, no apparent distress Respiratory: normal breath sounds, No crackles, No rhonchi, No wheezing Cardiac/Chest: regular rate, rhythm, edema (Trace bilateral pretibial), No diastolic murmur, No systolic murmur Skin: normal color, warm/dry Neuro/Psych: alert, normal mood/affect ICD10 Worksheet Patient Problems: Problems Problem Status Onset CVA (cerebral vascular accident) Acute
--- NOTE | 2018-06-22 14:00 | CPEKG ---
Test Reason : OPEN Blood Pressure : / mmHG Vent. Rate : 059 BPM Atrial Rate : 058 BPM P-R Int : 156 ms QRS Dur : 086 ms QT Int : 440 ms P-R-T Axes : 048 -09 051 degrees QTc Int : 436 ms SINUS RHYTHM Confirmed by Alban Skinner [id number] on 06/22/2018 1:59:48 PM Referred By: Confirmed By:Alban Skinner
[2018-06-22] MEDS: GABAPENTIN 100 MG CAP PO SCH (20:36)
[2018-06-22] MEDS: ATORVASTATIN CALCIUM 40 MG TAB PO SCH (20:36)
[2018-06-23] MEDS: LEVOTHYROXINE 88 MCG TAB PO SCH (06:11)
[2018-06-23] MEDS: DICLOFENAC SODIUM 1% 100 GM GEL TP SCH ×5 (07:14→21:46)
[2018-06-23] MEDS: LOSARTAN POTASSIUM 50 MG TAB PO SCH (09:19)
[2018-06-23] MEDS: ASPIRIN 81 MG CHEWABLE TAB PO SCH (09:20)
[2018-06-23] MEDS: VENLAFAXINE XR 75 MG CAP PO SCH (09:20)
[2018-06-23] MEDS: PANTOPRAZOLE SODIUM 40 MG TAB PO SCH (09:20)
[2018-06-23] MEDS: amLODIPine BESYLATE 5 MG TAB PO SCH (09:20)
[2018-06-23] MEDS: SENNOSIDES/DOCUSATE SODIUM TAB PO SCH ×2 (09:20→21:35)
[2018-06-23] MEDS: ENOXAPARIN 40 MG/0.4 ML SYR SC SCH (09:20)
[2018-06-23] MEDS: CLOPIDOGREL BISULFATE 75 MG TAB PO SCH (09:20)
[2018-06-23] MEDS: PROPRANOLOL HCL 160 MG PO SCH (09:21)
[2018-06-23] MEDS: RIVASTIGMINE TD SCH (09:21)
--- NOTE | 2018-06-23 12:24 | SOAPPROG ---
SOAP Progress Note Assessment/Plan: Assessment: Cerebrovascular accident 06/10/2018 with left upper and lower extremity weakness and left hemineglect. * Initial functional independence measure is 51 on 06/15/2018. Moderate assist for bed mobility and transfer. Has taken a few steps in parallel bars. Standby assist for upper body dressing, standby to contact guard assist for lower body dressing. Left hemineglect and motor apraxia. * Continue PT and OT to optimize mobility and activities of daily living. Cognitive impairment. * Moderate to severe impairments of attention, communication, problem solving, judgment, safety, executive function, memory, orientation. OLOG of . * Unclear whether transdermal rivastigmine has been effective. * Continue treatment per Speech and Language Pathology. Urinary incontinence. * Not improved with oxybutynin; discontinued 06/20/2018. * Treated for a UTI while she was in the hospital, and no signs or symptoms of current UTI. * Including discussion 06/22/2018, patient and indicate that urinary incontinence has been going on for years and likely predates the initiation of rivastigmine. * Continue scheduled toileting. Secondary stroke prophylaxis. Continue aspirin and clopidogrel together for 30 days (clopidogrel through 07/10/2018) with followup with Dr. Aureliano Bowers. Continue lipid control and blood pressure control. Question of pass to go home with for [place] will depend on her mobility and ability to make transfers including in out of a vehicle. * Still minimal to moderate assistance for transfers per PT on 06/22/2018. Await further assessment by PT and OT. Retinal condition with prednisone ophthalmic drops. Left message 06/23/2018 for senior principal software engineer Dr. Gonzalez regard occasion and duration of treatment. Hypertension, adequate control. * Continue amlodipine 5 mg daily, losartan 100 mg daily, propranolol 160 mg daily. Blood pressure will be monitored. Goal is less than 140/90. Dyslipidemia. Continue atorvastatin. Dysphagia, resolved. Advanced to regular texture diet and thin liquids. Hypothyroidism, continue levothyroxine. Depression. Continue venlafaxine. Hesitate to initiate fluoxetine as per the Flame trial for hemiplegic stroke as depression has been stable on venlafaxine and she is asymptomatic at present and would not like to destabilize her emotional equilibrium. SSRI plus norepinephrine effects of venlafaxine may also enhance neuro recovery. She reports that she takes gabapentin at 100 mg at HS to help calm her. Right knee pain, possibly consistent with anserine bursitis. * Normal XR on 06/16/2018. * Continue icing prn, acetaminophen prn,. * Discontinue diclofenac 50 mg PO twice daily on 06/20/2018 due to elevated risk for GI ulceration with [place] mutant aspirin, clopidogrel and enoxaparin. * Trial of diclofenac gel topical. Prophylaxis. Ordered enoxaparin as she has elevated DVT risk due to left-sided weakness and reduced mobility. As she is also on aspirin and clopidogrel, ordered pantoprazole for GI protection. DISPOSITION: Concerned regarding cognition of patient as well as . They live at an independent living facility. They may need a higher level of care. Tentative discharge date set for 07/07/2018. FOLLOWUP: She has a cardiac event monitor in place and will follow up with Cardiology to evaluate for occult atrial fibrillation. She will follow up with neurologist, Dr. Aureliano Bowers, in 3-4 weeks, or with his colleagues at [facility]. Her primary care doctor is Dr. Bridger Nobles, with whom she can follow up after she discharges from inpatient rehabilitation. 06/23/18 12:47 Subjective: No complaints. Sleeps well. Not in pain. Reports that she is working on her transfers. PT reports that she has improved carry-over of strategies. Nurse found prednisolone eyedrops at her bedside for which she has no orders. She reports they are prescribed by Dr. Gonzalez in [place] for a retinal problem. Objective: Vital Signs Temp Pulse Resp BP Pulse Ox 36.8 C 60 15 138/91 H 93 06/23/18 06:13 06/23/18 06:13 06/22/18 20:00 06/23/18 06:13 06/23/18 06:13 06/22/18 06/23/18 06/24/18 05:59 05:59 05:59 Intake Total 1040 250 240 Output Total 300 Balance 740 250 240 Physical Exam - Physical Exam General Appearance: WD/WN, alert, no apparent distress Respiratory: No respiratory distress, No accessory muscle use Skin: normal color, warm/dry Neuro/Psych: alert, normal mood/affect, cognition abnormalities (Memory and word -finding deficits) ICD10 Worksheet Patient Problems: Problems Problem Status Onset CVA (cerebral vascular accident) Acute
[2018-06-23] MEDS: ATORVASTATIN CALCIUM 40 MG TAB PO SCH (21:35)
[2018-06-23] MEDS: GABAPENTIN 100 MG CAP PO SCH (21:35)
[2018-06-24] MEDS: DICLOFENAC SODIUM 1% 100 GM GEL TP SCH ×4 (05:51→20:39)
[2018-06-24] MEDS: LEVOTHYROXINE 88 MCG TAB PO SCH (05:52)
[2018-06-24] MEDS: CLOPIDOGREL BISULFATE 75 MG TAB PO SCH (09:02)
[2018-06-24] MEDS: VENLAFAXINE XR 75 MG CAP PO SCH (09:03)
[2018-06-24] MEDS: ASPIRIN 81 MG CHEWABLE TAB PO SCH (09:03)
[2018-06-24] MEDS: ENOXAPARIN 40 MG/0.4 ML SYR SC SCH (09:03)
[2018-06-24] MEDS: PANTOPRAZOLE SODIUM 40 MG TAB PO SCH (09:04)
[2018-06-24] MEDS: LOSARTAN POTASSIUM 50 MG TAB PO SCH (09:04)
[2018-06-24] MEDS: SENNOSIDES/DOCUSATE SODIUM TAB PO SCH ×2 (09:05→21:43)
[2018-06-24] MEDS: amLODIPine BESYLATE 5 MG TAB PO SCH (09:05)
[2018-06-24] MEDS: PROPRANOLOL HCL 160 MG PO SCH (09:08)
[2018-06-24] MEDS: RIVASTIGMINE TD SCH (09:09)
--- NOTE | 2018-06-24 15:00 | SOAPPROG ---
SOAP Progress Note Assessment/Plan: Assessment: Cerebrovascular accident 06/10/2018 with left upper and lower extremity weakness and left hemineglect. * Initial functional independence measure is 51 on 06/15/2018. Improved to 58 as of 06/24/2018. Moderate assist for bed mobility and transfers. Ambulated 10 ft with a front wheeled walker and moderate assist. Does grooming and hygiene seated with standby assist. Incorporating left hand increasingly in ADLs. Minimal assist to standby assist for upper body dressing, moderate assist for lower body dressing. Left hemineglect and motor apraxia. * Continue PT and OT to optimize mobility and activities of daily living. Cognitive impairment. * Moderate to severe impairments of attention, communication, problem solving, judgment, safety, executive function, memory, orientation. OLOG of . Minimal or no improvement. * Unclear whether transdermal rivastigmine has been effective. * Continue treatment per Speech and Language Pathology. Urinary incontinence. * Not improved with oxybutynin; discontinued 06/20/2018. * Treated for a UTI while she was in the hospital, and no signs or symptoms of current UTI. * Including discussion 06/22/2018, patient and indicate that urinary incontinence has been going on for years and likely predates the initiation of rivastigmine. * Continue scheduled toileting. Right hip/sacral iliac joint pain. Reviewed x-rays from her hospitalization and there are no hip or pelvic fractures. Continue pain medications. May benefit from alternate strategies per PT. Secondary stroke prophylaxis. Continue aspirin and clopidogrel together for 30 days (clopidogrel through 07/10/2018) with followup with Dr. Aureliano Bowers. Continue lipid control and blood pressure control. Question of pass to go home with for [place] will depend on her mobility and ability to make transfers including in out of a vehicle. * Still minimal to moderate assistance for transfers per PT on 06/24/2018. Await further assessment by PT and OT. Retinal condition with prednisone ophthalmic drops. Discussed with 06/23/[address] Gonzalez regard occasion and duration of treatment. He reports that he did not prescribe the prednisolone drops but speculates that a primary cook italian style food may have prescribed them p.r.n. for dry eyes. He does not think that there is any harm in using them. Hypertension, adequate control. * Continue amlodipine 5 mg daily, losartan 100 mg daily, propranolol 160 mg daily. Blood pressure will be monitored. Goal is less than 140/90. Dyslipidemia. Continue atorvastatin. Dysphagia, resolved. Advanced to regular texture diet and thin liquids. Hypothyroidism, continue levothyroxine. Depression. Continue venlafaxine. Hesitate to initiate fluoxetine as per the Flame trial for hemiplegic stroke as depression has been stable on venlafaxine and she is asymptomatic at present and would not like to destabilize her emotional equilibrium. SSRI plus norepinephrine effects of venlafaxine may also enhance neuro recovery. She reports that she takes gabapentin at 100 mg at HS to help calm her. Right knee pain, possibly consistent with anserine bursitis. * Normal XR on 06/16/2018. * Continue icing prn, acetaminophen prn,. * Discontinue diclofenac 50 mg PO twice daily on 06/20/2018 due to elevated risk for GI ulceration with [place] mutant aspirin, clopidogrel and enoxaparin. * Trial of diclofenac gel topical. Prophylaxis. Ordered enoxaparin as she has elevated DVT risk due to left-sided weakness and reduced mobility. As she is also on aspirin and clopidogrel, ordered pantoprazole for GI protection. DISPOSITION: Attended staffing, 15 min. Discussed with case management, dietary, nursing, PT, OT, LINE ORDERING CLINICIAN. Concerned regarding cognition of patient as well as . They live at an independent living facility. They may need a higher level of care. Tentative discharge date set for 07/07/2018. Will have home visit and family, [place] prior to discharge. FOLLOWUP: She has a cardiac event monitor in place and will follow up with Cardiology to evaluate for occult atrial fibrillation. She will follow up with neurologist, Dr. Aureliano Bowers, in 3-4 weeks, or with his colleagues at [facility]. Her primary care doctor is Dr. Bridger Nobles, with whom she can follow up after she discharges from inpatient rehabilitation. 06/24/18 14:55 06/24/18 15:00 Subjective: Feels good about ambulating further. Has right hip pain. Does not bother her when she weight bears but she notices it with particular position changes. Otherwise without complaints. Objective: Vital Signs Temp Pulse Resp BP Pulse Ox 37.1 C 62 16 129/79 H 94 06/24/18 07:39 06/24/18 07:39 06/24/18 07:39 06/24/18 09:05 06/24/18 07:39 06/23/18 06/24/18 06/25/18 05:59 05:59 05:59 Intake Total 250 340 Balance 250 340 - Time Spent With Patient Time Spent With Patient: Greater than 35 min floor time today, including more than 50% of time in coordination of care during staffing meeting, and counseling patient. Physical Exam - Physical Exam General Appearance: WD/WN, alert, no apparent distress Respiratory: normal breath sounds, No crackles, No rhonchi, No wheezing Cardiac/Chest: regular rate, rhythm, edema (1+ bilateral pretibial), No JVD, No diastolic murmur, No systolic murmur Skin: normal color, warm/dry Extremities: other (Tender just lateral to right sacroiliac joint) Neuro/Psych: alert, normal mood/affect, abnormal gait (Ambulating with physical therapist, front wheeled walker, narrow base of support, step 2 pattern when waiting the left leg, step through pattern when waiting the right leg.) ICD10 Worksheet Patient Problems: Problems Problem Status Onset CVA (cerebral vascular accident) Acute
[2018-06-24] MEDS: GABAPENTIN 100 MG CAP PO SCH (20:38)
[2018-06-24] MEDS: ATORVASTATIN CALCIUM 40 MG TAB PO SCH (20:38)
[2018-06-25] MEDS: DICLOFENAC SODIUM 1% 100 GM GEL TP SCH ×4 (05:40→20:08)
[2018-06-25] MEDS: LEVOTHYROXINE 88 MCG TAB PO SCH (05:41)
[2018-06-25] MEDS: SENNOSIDES/DOCUSATE SODIUM TAB PO SCH ×2 (08:46→20:09)
[2018-06-25] MEDS: VENLAFAXINE XR 75 MG CAP PO SCH (08:46)
[2018-06-25] MEDS: ASPIRIN 81 MG CHEWABLE TAB PO SCH (08:46)
[2018-06-25] MEDS: amLODIPine BESYLATE 5 MG TAB PO SCH (08:46)
[2018-06-25] MEDS: PANTOPRAZOLE SODIUM 40 MG TAB PO SCH (08:46)
[2018-06-25] MEDS: ENOXAPARIN 40 MG/0.4 ML SYR SC SCH (08:47)
[2018-06-25] MEDS: LOSARTAN POTASSIUM 50 MG TAB PO SCH (08:47)
[2018-06-25] MEDS: CLOPIDOGREL BISULFATE 75 MG TAB PO SCH (08:47)
[2018-06-25] MEDS: RIVASTIGMINE TD SCH (09:00)
[2018-06-25] MEDS: PROPRANOLOL HCL 160 MG PO SCH (09:01)
--- NOTE | 2018-06-25 14:25 | SOAPPROG ---
SOAP Progress Note Assessment/Plan: Assessment: Cerebrovascular accident 06/10/2018 with left upper and lower extremity weakness and left hemineglect. * Initial functional independence measure is 51 on 06/15/2018. Improved to 58 as of 06/24/2018. Moderate assist for bed mobility and transfers. Ambulated 10 ft with a front wheeled walker and moderate assist. Does grooming and hygiene seated with standby assist. Incorporating left hand increasingly in ADLs. Minimal assist to standby assist for upper body dressing, moderate assist for lower body dressing. Left hemineglect and motor apraxia. * Continue PT and OT to optimize mobility and activities of daily living. Cognitive impairment. * Moderate to severe impairments of attention, communication, problem solving, judgment, safety, executive function, memory, orientation. OLOG of . Minimal or no improvement. * Unclear whether transdermal rivastigmine has been effective. * Continue treatment per Speech and Language Pathology. Urinary incontinence. * Not improved with oxybutynin; discontinued 06/20/2018. * Treated for a UTI while she was in the hospital, and no signs or symptoms of current UTI. * In discussion 06/22/2018, patient and indicate that urinary incontinence has been going on for years and likely predates the initiation of rivastigmine. * Continue scheduled toileting. Right hip/sacral iliac joint pain. Reviewed x-rays from her hospitalization and there are no hip or pelvic fractures. Continue pain medications. May benefit from alternate strategies per PT. Secondary stroke prophylaxis. Continue aspirin and clopidogrel together for 30 days (clopidogrel through 07/10/2018) with followup with Dr. Aureliano Bowers. Continue lipid control and blood pressure control. Question of pass to go home with for [place] will depend on her mobility and ability to make transfers including in out of a vehicle. * Still minimal to moderate assistance for transfers per PT on 06/24/2018. Await further assessment by PT and OT. Prednisone ophthalmic drops. Discussed with 06/23/[address] Gonzalez regard occasion and duration of treatment. He reports that he did not prescribe the prednisolone drops but speculates that a primary crime laboratory analyst may have prescribed them p.r.n. for dry eyes. He does not think that there is any harm in using them. * Prescribed twice daily to left eye starting 06/25/2018. Hypertension, adequate control. * Continue amlodipine 5 mg daily, losartan 100 mg daily, propranolol 160 mg daily. Blood pressure will be monitored. Goal is less than 140/90. Dyslipidemia. Continue atorvastatin. Dysphagia, resolved. Advanced to regular texture diet and thin liquids. Hypothyroidism, continue levothyroxine. Depression. Continue venlafaxine. Hesitate to initiate fluoxetine as per the Flame trial for hemiplegic stroke as depression has been stable on venlafaxine and she is asymptomatic at present and would not like to destabilize her emotional equilibrium. SSRI plus norepinephrine effects of venlafaxine may also enhance neuro recovery. She reports that she takes gabapentin at 100 mg at HS to help calm her. Right knee pain, possibly consistent with anserine bursitis. * Normal XR on 06/16/2018. * Continue icing prn, acetaminophen prn,. * Discontinue diclofenac 50 mg PO twice daily on 06/20/2018 due to elevated risk for GI ulceration with [place] mutant aspirin, clopidogrel and enoxaparin. * Trial of diclofenac gel topical. Prophylaxis. Ordered enoxaparin as she has elevated DVT risk due to left-sided weakness and reduced mobility. As she is also on aspirin and clopidogrel, ordered pantoprazole for GI protection. DISPOSITION: Concerned regarding cognition of patient as well as . They live at an independent living facility. They may need a higher level of care. Tentative discharge date set for 07/07/2018. Will have home visit and family, [place] prior to discharge. FOLLOWUP: She has a cardiac event monitor in place and will follow up with Cardiology to evaluate for occult atrial fibrillation. She will follow up with neurologist, Dr. Aureliano Bowers, in 3-4 weeks, or with his colleagues at [facility]. Her primary care doctor is Dr. Bridger Nobles, with whom she can follow up after she discharges from inpatient rehabilitation. 06/25/18 14:22 Subjective: Reports that she is post to use the prednisolone eye drops twice daily in her left eye. Informed patient of my conversation with retinal specialist Dr. Gonzalez yesterday, who reported that he had not prescribe the medication. Patient is currently unable to recall the name of her primary crime laboratory analyst in [place]. Otherwise without complaints. Reports that she is fatigued from walking yesterday. Objective: Vital Signs Temp Pulse Resp BP Pulse Ox 36.6 C 87 16 133/81 H 92 06/24/18 20:00 12/21/18 20:00 06/24/18 20:00 06/25/18 08:47 06/24/18 20:00 06/24/18 06/25/18 06/26/18 05:59 05:59 05:59 Intake Total 340 740 Balance 340 740 Physical Exam - Physical Exam General Appearance: WD/WN, alert, no apparent distress Respiratory: No respiratory distress, No accessory muscle use Skin: normal color, warm/dry Neuro/Psych: alert, normal mood/affect, cognition abnormalities ICD10 Worksheet Patient Problems: Problems Problem Status Onset CVA (cerebral vascular accident) Acute
[2018-06-25] MEDS: PREDNISOLONE ACET 0.12% LEFTEYE SCH (20:08)
[2018-06-25] MEDS: ATORVASTATIN CALCIUM 40 MG TAB PO SCH (20:09)
[2018-06-25] MEDS: GABAPENTIN 100 MG CAP PO SCH (20:09)
[2018-06-26] MEDS: DICLOFENAC SODIUM 1% 100 GM GEL TP SCH ×4 (05:57→21:19)
[2018-06-26] MEDS: LEVOTHYROXINE 88 MCG TAB PO SCH (05:57)
[2018-06-26] MEDS: RIVASTIGMINE TD SCH (07:47)
[2018-06-26] MEDS: PROPRANOLOL HCL 160 MG PO SCH (07:48)
[2018-06-26] MEDS: ENOXAPARIN 40 MG/0.4 ML SYR SC SCH (07:55)
[2018-06-26] MEDS: SENNOSIDES/DOCUSATE SODIUM TAB PO SCH ×2 (07:55→21:20)
[2018-06-26] MEDS: amLODIPine BESYLATE 5 MG TAB PO SCH (07:55)
[2018-06-26] MEDS: CLOPIDOGREL BISULFATE 75 MG TAB PO SCH (07:55)
[2018-06-26] MEDS: VENLAFAXINE XR 75 MG CAP PO SCH (07:56)
[2018-06-26] MEDS: LOSARTAN POTASSIUM 50 MG TAB PO SCH (07:56)
[2018-06-26] MEDS: PANTOPRAZOLE SODIUM 40 MG TAB PO SCH (07:56)
[2018-06-26] MEDS: ASPIRIN 81 MG CHEWABLE TAB PO SCH (07:56)
[2018-06-26] MEDS: PREDNISOLONE ACET 0.12% LEFTEYE SCH ×2 (10:23→21:20)
--- NOTE | 2018-06-26 12:26 | SOAPPROG ---
SOAP Progress Note Assessment/Plan: Assessment: Cerebrovascular accident 06/10/2018 with left upper and lower extremity weakness and left hemineglect. * Initial functional independence measure is 51 on 06/15/2018. Improved to 58 as of 06/24/2018. Moderate assist for bed mobility and transfers. Ambulated 10 ft with a front wheeled walker and moderate assist. Does grooming and hygiene seated with standby assist. Incorporating left hand increasingly in ADLs. Minimal assist to standby assist for upper body dressing, moderate assist for lower body dressing. Left hemineglect and motor apraxia. * Continue PT and OT to optimize mobility and activities of daily living. Cognitive impairment. * Moderate to severe impairments of attention, communication, problem solving, judgment, safety, executive function, memory, orientation. OLOG of ; improved to 29/30 as of 06/25/2018. * Unclear whether transdermal rivastigmine has been effective. * Continue treatment per Speech and Language Pathology. Urinary incontinence. * Not improved with oxybutynin; discontinued 06/20/2018. * Treated for a UTI while she was in the hospital, and no signs or symptoms of current UTI. * In discussion 06/22/2018, patient and indicate that urinary incontinence has been going on for years and likely predates the initiation of rivastigmine. * Continue scheduled toileting. Right hip/sacro-iliac joint pain. Reviewed x-rays from her hospitalization and there are no hip or pelvic fractures. Continue pain medications. May benefit from alternate strategies per PT. Secondary stroke prophylaxis. Continue aspirin and clopidogrel together for 30 days (clopidogrel through 07/10/2018) with followup with Dr. Aureliano Bowers. Continue lipid control and blood pressure control. Question of pass to go home with for [place] will depend on her mobility and ability to make transfers including in out of a vehicle. * Still minimal to moderate assistance for transfers per PT on 06/24/2018. Await further assessment by PT and OT. Prednisone ophthalmic drops. Discussed with 06/23/[address] Gonzalez regard occasion and duration of treatment. He reports that he did not prescribe the prednisolone drops but speculates that a primary residential service technician may have prescribed them p.r.n. for dry eyes. He does not think that there is any harm in using them. * Prescribed twice daily to left eye starting 06/25/2018. * reports prescriber was residential service technician Dr. Spears in [facility]. Will attempt to contact her on Wednesday06/26/2018. Hypertension, adequate control. * Continue amlodipine 5 mg daily, losartan 100 mg daily, propranolol 160 mg daily. Blood pressure will be monitored. Goal is less than 140/90. Dyslipidemia. Continue atorvastatin. Dysphagia, resolved. Advanced to regular texture diet and thin liquids. Hypothyroidism, continue levothyroxine. Depression. Continue venlafaxine. Hesitate to initiate fluoxetine as per the Flame trial for hemiplegic stroke as depression has been stable on venlafaxine and she is asymptomatic at present and would not like to destabilize her emotional equilibrium. SSRI plus norepinephrine effects of venlafaxine may also enhance neuro recovery. She reports that she takes gabapentin at 100 mg at HS to help calm her. Right knee pain, possibly consistent with anserine bursitis. * Normal XR on 06/16/2018. * Continue icing prn, acetaminophen prn,. * Discontinue diclofenac 50 mg PO twice daily on 06/20/2018 due to elevated risk for GI ulceration with [place] mutant aspirin, clopidogrel and enoxaparin. * Trial of diclofenac gel topical. Prophylaxis. Ordered enoxaparin as she has elevated DVT risk due to left-sided weakness and reduced mobility. As she is also on aspirin and clopidogrel, ordered pantoprazole for GI protection. DISPOSITION: Concerned regarding cognition of patient as well as . They live at an independent living facility. They may need a higher level of care. Tentative discharge date set for 07/07/2018. Will have home visit and family, [facility] prior to discharge. FOLLOWUP: She has a cardiac event monitor in place and will follow up with Cardiology to evaluate for occult atrial fibrillation. She will follow up with neurologist, Dr. Aureliano Bowers, in 3-4 weeks, or with his colleagues at [facility]. Her primary care doctor is Dr. Bridger Nobles, with whom she can follow up after she discharges from inpatient rehabilitation. 06/26/18 12:23 Subjective: Has improved use of left hand. Seen working with OT. Has improved ambulation but fatigued after multiple attempts. Slept well. Not in pain. Objective: Vital Signs Temp Pulse Resp BP Pulse Ox 36.5 C 62 18 124/82 H 96 06/26/18 08:00 06/26/18 08:00 06/26/18 08:00 06/26/18 08:00 06/26/18 08:00 06/25/18 06/26/18 06/27/18 05:59 05:59 05:59 Intake Total 740 700 Output Total 200 Balance 740 500 Physical Exam - Physical Exam General Appearance: WD/WN, alert, no apparent distress Respiratory: normal breath sounds, No crackles, No rhonchi, No wheezing Cardiac/Chest: regular rate, rhythm, No edema, No diastolic murmur, No systolic murmur Skin: normal color, warm/dry Neuro/Psych: alert, normal mood/affect, motor weakness (Improved left upper extremity ataxia. Able to manipulate coins with her hand and place them into a slide container with OT.) ICD10 Worksheet Patient Problems: Problems Problem Status Onset CVA (cerebral vascular accident) Acute
[2018-06-26] MEDS: ACETAMINOPHEN 325 MG TAB PO PRN (13:41)
[2018-06-26] MEDS: GABAPENTIN 100 MG CAP PO SCH (21:20)
[2018-06-26] MEDS: ATORVASTATIN CALCIUM 40 MG TAB PO SCH (21:20)
[2018-06-27] MEDS: LEVOTHYROXINE 88 MCG TAB PO SCH (05:46)
[2018-06-27] MEDS: DICLOFENAC SODIUM 1% 100 GM GEL TP SCH ×4 (05:47→21:03)
[2018-06-27] MEDS: ASPIRIN 81 MG CHEWABLE TAB PO SCH (07:58)
[2018-06-27] MEDS: CLOPIDOGREL BISULFATE 75 MG TAB PO SCH (07:58)
[2018-06-27] MEDS: ENOXAPARIN 40 MG/0.4 ML SYR SC SCH (07:58)
[2018-06-27] MEDS: SENNOSIDES/DOCUSATE SODIUM TAB PO SCH ×3 (07:58→21:02)
[2018-06-27] MEDS: PANTOPRAZOLE SODIUM 40 MG TAB PO SCH (07:59)
[2018-06-27] MEDS: VENLAFAXINE XR 75 MG CAP PO SCH (07:59)
[2018-06-27] MEDS: amLODIPine BESYLATE 5 MG TAB PO SCH (07:59)
[2018-06-27] MEDS: LOSARTAN POTASSIUM 50 MG TAB PO SCH (08:03)
[2018-06-27] MEDS: PROPRANOLOL HCL 160 MG PO SCH (08:05)
[2018-06-27] MEDS: RIVASTIGMINE TD SCH (08:06)
[2018-06-27] MEDS: PREDNISOLONE ACET 0.12% LEFTEYE SCH ×2 (08:07→21:03)
[2018-06-27] MEDS: ACETAMINOPHEN 325 MG TAB PO PRN ×2 (08:27→17:42)
--- NOTE | 2018-06-27 12:11 | SOAPPROG ---
SOAP Progress Note Assessment/Plan: Assessment: Cerebrovascular accident 06/10/2018 with left upper and lower extremity weakness and left hemineglect. * Initial functional independence measure is 51 on 06/15/2018. Improved to 58 as of 06/24/2018. Moderate assist for bed mobility and transfers. Ambulated 10 ft with a front wheeled walker and moderate assist. Does grooming and hygiene seated with standby assist. Incorporating left hand increasingly in ADLs. Minimal assist to standby assist for upper body dressing, moderate assist for lower body dressing. Left hemineglect and motor apraxia. * Continue PT and OT to optimize mobility and activities of daily living. Cognitive impairment. * Moderate to severe impairments of attention, communication, problem solving, judgment, safety, executive function, memory, orientation. OLOG of ; improved to 29/30 as of 06/25/2018. * Unclear whether transdermal rivastigmine has been effective. * Continue treatment per Speech and Language Pathology. Urinary incontinence. * Not improved with oxybutynin; discontinued 06/20/2018. * Treated for a UTI while she was in the hospital, and no signs or symptoms of current UTI. * In discussion 06/22/2018, patient and indicate that urinary incontinence has been going on for years and likely predates the initiation of rivastigmine. * Continue scheduled toileting. Right hip/sacro-iliac joint pain. Reviewed x-rays from her hospitalization and there are no hip or pelvic fractures. Continue pain medications. May benefit from alternate strategies per PT. Secondary stroke prophylaxis. Continue aspirin and clopidogrel together for 30 days (clopidogrel through 07/10/2018) with followup with Dr. Aureliano Bowers. Continue lipid control and blood pressure control. Prednisone ophthalmic drops. Discussed with 06/23/[address] Gonzalez regard occasion and duration of treatment. He reports that he did not prescribe the prednisolone drops but speculates that a primary truck repair supervisor may have prescribed them p.r.n. for dry eyes. He does not think that there is any harm in using them. * Prescribed twice daily to left eye starting 06/25/2018. * reports prescriber was truck repair supervisor Dr. Spears in [facility]. Will attempt to contact her on Wednesday06/26/2018. Hypertension, adequate control. * Continue amlodipine 5 mg daily, losartan 100 mg daily, propranolol 160 mg daily. Blood pressure will be monitored. Goal is less than 140/90. Dyslipidemia. Continue atorvastatin. Dysphagia, resolved. Advanced to regular texture diet and thin liquids. Hypothyroidism, continue levothyroxine. Depression. Continue venlafaxine. Hesitate to initiate fluoxetine as per the Flame trial for hemiplegic stroke as depression has been stable on venlafaxine and she is asymptomatic at present and would not like to destabilize her emotional equilibrium. SSRI plus norepinephrine effects of venlafaxine may also enhance neuro recovery. She reports that she takes gabapentin at 100 mg at HS to help calm her. Right knee pain, possibly consistent with anserine bursitis. * Normal XR on 06/16/2018. * Continue icing prn, acetaminophen prn,. * Discontinue diclofenac 50 mg PO twice daily on 06/20/2018 due to elevated risk for GI ulceration with [place] mutant aspirin, clopidogrel and enoxaparin. * Trial of diclofenac gel topical. Prophylaxis. Ordered enoxaparin as she has elevated DVT risk due to left-sided weakness and reduced mobility. As she is also on aspirin and clopidogrel, ordered pantoprazole for GI protection. DISPOSITION: Concerned regarding cognition of patient as well as . They live at an independent living facility. They may need a higher level of care. Tentative discharge date set for 07/07/2018. Will have home visit and family, [place] prior to discharge. FOLLOWUP: She has a cardiac event monitor in place and will follow up with Cardiology to evaluate for occult atrial fibrillation. She will follow up with neurologist, Dr. Aureliano Bowers, in 3-4 weeks, or with his colleagues at [facility]. Her primary care doctor is Dr. Bridger Nobles, with whom she can follow up after she discharges from inpatient rehabilitation. 06/27/18 12:06 Subjective: Still has knee and hip pain. Diclofenac gel helps the knee. Acetaminophen helps overall. Sleeping well. Otherwise without complaints. Objective: Vital Signs Temp Pulse Resp BP Pulse Ox 36.5 C 56 L 56 H 149/84 H 95 06/27/18 08:00 06/27/18 08:00 06/27/18 08:00 06/27/18 08:03 06/27/18 08:00 06/26/18 06/27/18 06/28/18 05:59 05:59 05:59 Intake Total 700 1140 Output Total 200 Balance 500 1140 Physical Exam - Physical Exam General Appearance: WD/WN, alert, no apparent distress Respiratory: No respiratory distress, No accessory muscle use Skin: normal color, warm/dry Neuro/Psych: alert, normal mood/affect ICD10 Worksheet Patient Problems: Problems Problem Status Onset CVA (cerebral vascular accident) Acute
[2018-06-27] MEDS: GABAPENTIN 100 MG CAP PO SCH (21:01)
[2018-06-27] MEDS: ATORVASTATIN CALCIUM 40 MG TAB PO SCH (21:01)
[2018-06-28] MEDS: LEVOTHYROXINE 88 MCG TAB PO SCH (06:05)
[2018-06-28] MEDS: DICLOFENAC SODIUM 1% 100 GM GEL TP SCH ×4 (06:12→20:36)
[2018-06-28] MEDS: VENLAFAXINE XR 75 MG CAP PO SCH (06:13)
[2018-06-28] MEDS: ACETAMINOPHEN 325 MG TAB PO PRN (08:03)
[2018-06-28] MEDS: ENOXAPARIN 40 MG/0.4 ML SYR SC SCH (08:03)
[2018-06-28] MEDS: SENNOSIDES/DOCUSATE SODIUM TAB PO SCH ×2 (08:04→20:35)
[2018-06-28] MEDS: LOSARTAN POTASSIUM 50 MG TAB PO SCH (08:04)
[2018-06-28] MEDS: ASPIRIN 81 MG CHEWABLE TAB PO SCH (08:04)
[2018-06-28] MEDS: PANTOPRAZOLE SODIUM 40 MG TAB PO SCH (08:04)
[2018-06-28] MEDS: amLODIPine BESYLATE 5 MG TAB PO SCH (08:04)
[2018-06-28] MEDS: CLOPIDOGREL BISULFATE 75 MG TAB PO SCH (08:04)
[2018-06-28] MEDS: RIVASTIGMINE TD SCH (08:05)
[2018-06-28] MEDS: PREDNISOLONE ACET 0.12% LEFTEYE SCH ×3 (08:06→20:36)
[2018-06-28] MEDS: PROPRANOLOL HCL 160 MG PO SCH (08:06)
--- NOTE | 2018-06-28 13:23 | SOAPPROG ---
SOAP Progress Note Assessment/Plan: Assessment: Cerebrovascular accident 06/10/2018 with left upper and lower extremity weakness and left hemineglect. * Initial functional independence measure is 51 on 06/15/2018. Improved to 58 as of 06/24/2018. Moderate assist for bed mobility and transfers. Ambulated 10 ft with a front wheeled walker and moderate assist. Does grooming and hygiene seated with standby assist. Incorporating left hand increasingly in ADLs. Minimal assist to standby assist for upper body dressing, moderate assist for lower body dressing. Left hemineglect and motor apraxia. * Continue PT and OT to optimize mobility and activities of daily living. Cognitive impairment. * Moderate to severe impairments of attention, communication, problem solving, judgment, safety, executive function, memory, orientation. OLOG of ; improved to 29/30 as of 06/25/2018. * Unclear whether transdermal rivastigmine has been effective. * Continue treatment per Speech and Language Pathology. Urinary incontinence. * Not improved with oxybutynin; discontinued 06/20/2018. * Treated for a UTI while she was in the hospital, and no signs or symptoms of current UTI. * In discussion 06/22/2018, patient and indicate that urinary incontinence has been going on for years and likely predates the initiation of rivastigmine. * Continue scheduled toileting. Right hip/sacro-iliac joint pain. Reviewed x-rays from her hospitalization and there are no hip or pelvic fractures. Continue pain medications. May benefit from alternate strategies per PT. Secondary stroke prophylaxis. Continue aspirin and clopidogrel together for 30 days (clopidogrel through 07/10/2018) with followup with Dr. Aureliano Bowers. Continue lipid control and blood pressure control. Prednisone ophthalmic drops. Discussed with 06/23/[address] Gonzalez regard occasion and duration of treatment. He reports that he did not prescribe the prednisolone drops but speculates that a primary airport maintenance chief may have prescribed them p.r.n. for dry eyes. He does not think that there is any harm in using them. * Prescribed twice daily to left eye starting 06/25/2018. * reports prescriber was airport maintenance chief Dr. Spears in [facility]. Left message for her Wednesday06/26/2018. Hypertension, adequate control. * Continue amlodipine 5 mg daily, losartan 100 mg daily, propranolol 160 mg daily. Blood pressure will be monitored. Goal is less than 140/90. Dyslipidemia. Continue atorvastatin. Dysphagia, resolved. Advanced to regular texture diet and thin liquids. Hypothyroidism, continue levothyroxine. Depression. Continue venlafaxine. Hesitate to initiate fluoxetine as per the Flame trial for hemiplegic stroke as depression has been stable on venlafaxine and she is asymptomatic at present and would not like to destabilize her emotional equilibrium. SSRI plus norepinephrine effects of venlafaxine may also enhance neuro recovery. She reports that she takes gabapentin at 100 mg at HS to help calm her. Right knee pain, possibly consistent with anserine bursitis. * Normal XR on 06/16/2018. * Continue icing prn, acetaminophen prn,. * Discontinue diclofenac 50 mg PO twice daily on 06/20/2018 due to elevated risk for GI ulceration with [place] mutant aspirin, clopidogrel and enoxaparin. * Trial of diclofenac gel topical. Prophylaxis. Ordered enoxaparin as she has elevated DVT risk due to left-sided weakness and reduced mobility. As she is also on aspirin and clopidogrel, ordered pantoprazole for GI protection. DISPOSITION: Concerned regarding cognition of patient as well as . They live at an independent living facility. They may need a higher level of care. Tentative discharge date set for 07/07/2018. Will have home visit and family, Angelic prior to discharge. FOLLOWUP: She has a cardiac event monitor in place and will follow up with Cardiology to evaluate for occult atrial fibrillation. She will follow up with neurologist, Dr. Aureliano Bowers, in 3-4 weeks, or with his colleagues at [facility]. Her primary care doctor is Dr. Bridger Nobles, with whom she can follow up after she discharges from inpatient rehabilitation. 06/28/18 13:21 Subjective: No complaints. Sleeping well. Not in pain. Reports improved use of left hand. Objective: Vital Signs Temp Pulse Resp BP Pulse Ox 36.7 C 56 L 16 116/63 94 06/28/18 06:25 06/28/18 06:25 06/28/18 06:25 06/28/18 08:04 06/28/18 06:25 06/27/18 06/28/18 06/29/18 05:59 05:59 05:59 Intake Total 1140 1100 Balance 1140 1100 Physical Exam - Physical Exam General Appearance: WD/WN, alert, no apparent distress Respiratory: No respiratory distress, No accessory muscle use Skin: normal color, warm/dry Neuro/Psych: alert, normal mood/affect, abnormal gait (Slightly wide-based, step 2 pattern when waiting left leg, step through pattern when waiting right leg, slow.), motor weakness (Left hand ataxia.) ICD10 Worksheet Patient Problems: Problems Problem Status Onset CVA (cerebral vascular accident) Acute
[2018-06-28] MEDS: GABAPENTIN 100 MG CAP PO SCH (20:36)
[2018-06-28] MEDS: ATORVASTATIN CALCIUM 40 MG TAB PO SCH (20:36)
[2018-06-29] MEDS: DICLOFENAC SODIUM 1% 100 GM GEL TP SCH ×4 (05:37→19:56)
[2018-06-29] MEDS: LEVOTHYROXINE 88 MCG TAB PO SCH (05:37)
[2018-06-29] MEDS: amLODIPine BESYLATE 5 MG TAB PO SCH (08:07)
[2018-06-29] MEDS: VENLAFAXINE XR 75 MG CAP PO SCH (08:07)
[2018-06-29] MEDS: LOSARTAN POTASSIUM 50 MG TAB PO SCH (08:08)
[2018-06-29] MEDS: CLOPIDOGREL BISULFATE 75 MG TAB PO SCH (08:08)
[2018-06-29] MEDS: ASPIRIN 81 MG CHEWABLE TAB PO SCH (08:08)
[2018-06-29] MEDS: PANTOPRAZOLE SODIUM 40 MG TAB PO SCH (08:08)
[2018-06-29] MEDS: SENNOSIDES/DOCUSATE SODIUM TAB PO SCH (08:09)
[2018-06-29] MEDS: ENOXAPARIN 40 MG/0.4 ML SYR SC SCH (09:58)
[2018-06-29] MEDS: PREDNISOLONE ACET 0.12% LEFTEYE SCH ×2 (10:04→19:55)
[2018-06-29] MEDS: PROPRANOLOL HCL 160 MG PO SCH (10:04)
[2018-06-29] MEDS: RIVASTIGMINE TD SCH (10:05)
[2018-06-29] MEDS ORDERED: SENNOSIDES/DOCUSATE SODIUM TAB PO PRN (12:13)
--- NOTE | 2018-06-29 12:17 | SOAPPROG ---
SOAP Progress Note Assessment/Plan: Assessment: Cerebrovascular accident 06/10/2018 with left upper and lower extremity weakness and left hemineglect. * Initial functional independence measure is 51 on 06/15/2018. Improved to 58 as of 06/24/2018, and to 62 as of 06/29/2018. Would be 6 7 if she had not had the episode of fecal incontinence. Minimal to moderate assist for transfers. Ambulated 15 ft with a front wheeled walker. Has motor apraxia. Knee pain limits ambulation distance. Self propels wheelchair 50 ft with cuing and supervision. Moderate assistance for bed mobility lower body dressing it is with minimal assist, upper body dressing with supervision. * Continue PT and OT to optimize mobility and activities of daily living. Cognitive impairment. * Moderate to severe impairments of attention, communication, problem solving, judgment, safety, executive function, memory, orientation. OLOG of ; improved to 29/30 as of 06/25/2018. * Unclear whether transdermal rivastigmine has been effective. * Continue treatment per Speech and Language Pathology. Urinary incontinence. * Not improved with oxybutynin; discontinued 06/20/2018. * Treated for a UTI while she was in the hospital, and no signs or symptoms of current UTI. * In discussion 06/22/2018, patient and indicate that urinary incontinence has been going on for years and likely predates the initiation of rivastigmine. * Continue scheduled toileting. Right hip/sacro-iliac joint pain. Reviewed x-rays from her hospitalization and there are no hip or pelvic fractures. Continue pain medications. May benefit from alternate strategies per PT. Secondary stroke prophylaxis. Continue aspirin and clopidogrel together for 30 days (clopidogrel through 07/10/2018) with followup with Dr. Aureliano Bowers. Continue lipid control and blood pressure control. Prednisolone ophthalmic drops. Discussed with 06/23/[address] Gonzalez regard occasion and duration of treatment. He reports that he did not prescribe the prednisolone drops but speculates that a primary laborer [place] may have prescribed them p.r.n. for dry eyes. He does not think that there is any harm in using them. * Prescribed twice daily to left eye starting 06/25/2018. * reports prescriber was laborer gold leaf Dr. Spears in [facility]. Left message for her Wednesday06/26/2018. Hypertension, adequate control. * Continue amlodipine 5 mg daily, losartan 100 mg daily, propranolol 160 mg daily. Blood pressure will be monitored. Goal is less than 140/90. Dyslipidemia. Continue atorvastatin. Dysphagia, resolved. Advanced to regular texture diet and thin liquids. Hypothyroidism, continue levothyroxine. Depression. Continue venlafaxine. Hesitate to initiate fluoxetine as per the Flame trial for hemiplegic stroke as depression has been stable on venlafaxine and she is asymptomatic at present and would not like to destabilize her emotional equilibrium. SSRI plus norepinephrine effects of venlafaxine may also enhance neuro recovery. She reports that she takes gabapentin at 100 mg at HS to help calm her. Right knee pain, possibly consistent with anserine bursitis. * Normal XR on 06/16/2018. * Continue icing prn, acetaminophen prn,. * Discontinue diclofenac 50 mg PO twice daily on 06/20/2018 due to elevated risk for GI ulceration with [place] mutant aspirin, clopidogrel and enoxaparin. * Trial of diclofenac gel topical. Prophylaxis. Ordered enoxaparin as she has elevated DVT risk due to left-sided weakness and reduced mobility. As she is also on aspirin and clopidogrel, ordered pantoprazole for GI protection. DISPOSITION: Attended staffing, 15 min. Discussed with case management, dietitian, nursing, PT, OT, SYSTEMS ANALYST DEVELOPER. Concerned regarding cognition of patient as well as . They live at an independent living facility. They may need a higher level of care. Tentative discharge date set for 07/07/2018. Planning discharge to intermediate facility for continued therapy, with eventual goal to return home with . FOLLOWUP: She has a cardiac event monitor in place and will follow up with Cardiology to evaluate for occult atrial fibrillation. She will follow up with neurologist, Dr. Aureliano Bowers, in 3-4 weeks, or with his colleagues at [facility]. Her primary care doctor is Dr. Bridger Nobles, with whom she can follow up after she discharges from inpatient rehabilitation. 06/29/18 12:14 Subjective: No complaints. Sleeping well. Had episode of fecal incontinence this morning and thinks she is taking more laxatives and she needs. Objective: Vital Signs Temp Pulse Resp BP Pulse Ox 36.7 C 60 16 148/81 H 92 06/29/18 06:22 06/29/18 06:22 06/29/18 06:22 06/29/18 08:08 06/29/18 06:22 06/28/18 06/29/18 06/30/18 05:59 05:59 05:59 Intake Total 1100 1200 Output Total 1 Balance 1100 1199 Physical Exam - Physical Exam General Appearance: WD/WN, alert, no apparent distress Respiratory: No respiratory distress, No accessory muscle use Skin: normal color, warm/dry Neuro/Psych: alert, normal mood/affect, oriented x 3, motor weakness (Left upper extremity motor apraxia noted while observing her eating lunch.) ICD10 Worksheet Patient Problems: Problems Problem Status Onset CVA (cerebral vascular accident) Acute
[2018-06-29] MEDS: GABAPENTIN 100 MG CAP PO SCH (19:55)
[2018-06-29] MEDS: ATORVASTATIN CALCIUM 40 MG TAB PO SCH (19:55)
[2018-06-30] MEDS: ACETAMINOPHEN 325 MG TAB PO PRN ×4 (01:07→22:15)
[2018-06-30] MEDS: LEVOTHYROXINE 88 MCG TAB PO SCH (06:26)
[2018-06-30] MEDS: DICLOFENAC SODIUM 1% 100 GM GEL TP SCH ×4 (06:27→21:02)
[2018-06-30] MEDS: ASPIRIN 81 MG CHEWABLE TAB PO SCH (08:36)
[2018-06-30] MEDS: CLOPIDOGREL BISULFATE 75 MG TAB PO SCH (08:36)
[2018-06-30] MEDS: ENOXAPARIN 40 MG/0.4 ML SYR SC SCH (08:36)
[2018-06-30] MEDS: LOSARTAN POTASSIUM 50 MG TAB PO SCH (08:37)
[2018-06-30] MEDS: VENLAFAXINE XR 75 MG CAP PO SCH (08:37)
[2018-06-30] MEDS: amLODIPine BESYLATE 5 MG TAB PO SCH (08:37)
[2018-06-30] MEDS: PANTOPRAZOLE SODIUM 40 MG TAB PO SCH (08:37)
[2018-06-30] MEDS: PROPRANOLOL HCL 160 MG PO SCH (08:40)
[2018-06-30] MEDS: PREDNISOLONE ACET 0.12% LEFTEYE SCH ×2 (08:41→21:02)
[2018-06-30] MEDS: RIVASTIGMINE TD SCH (08:44)
--- NOTE | 2018-06-30 11:47 | SOAPPROG ---
SOAP Progress Note Assessment/Plan: 78-year-old woman with bilateral multi focal strokes with bilateral weakness and zamzam inattention, impairments in mobility and self-care as well as cognition Today's update: Continues to make slow progress, vertigo does not seem associated with low blood pressure or other neurological changes, no new neurological symptoms. Unclear etiology, could be peripheral or less likely central. Symptoms completely resolved, would consider neuro imaging if she had recurrence of symptoms or symptoms associated with other neurological changes. A total of 25 min was spent on the floor in the care of the patient, the majority of which was spent in the counseling and coordination of care regarding discussion with therapies and staff about participation in the setting of an episode of paroxysmal vertigo. Additional issues reviewed without change today include secondary stroke prophylaxis, hypertension (slightly elevated today but generally within range, monitoring), dyslipidemia, dysphagia, hypothyroidism, depression, right knee pain, DVT prophylaxis. 06/21/18 10:27 06/30/18 11:44 Subjective: Chief complaint: Vertigo No acute events overnight. Patient denies any new shortness of breath or chest pain, no new numbness, tingling, or weakness. She had an episode of vertigo that was spontaneous, associated with sitting in speech therapy and working with the therapist. Does not note any particular inciting movements or changes. Resolved completely when she laid down in bed. Blood pressure while sitting in her chair, symptomatic, was systolic of 131. She states that has not occurred before. Denies any other new symptoms, no residual symptoms when I saw her. Otherwise she feels like therapy is going well, somewhat slow, there seemed to be some confusion about discharge planning. Objective: Vital Signs Temp Pulse Resp BP Pulse Ox 36.6 C 68 16 131/73 H 93 06/30/18 05:49 06/30/18 10:48 06/30/18 05:49 06/30/18 10:48 06/30/18 05:49 06/29/18 06/30/18 07/01/18 05:59 05:59 05:59 Intake Total 1200 1550 300 Output Total 1 Balance 1199 1550 300 Physical Exam - Physical Exam General Appearance: WD/WN, alert, no apparent distress EENT: No scleral icterus (R), No scleral icterus (L) Respiratory: No respiratory distress, No accessory muscle use Cardiac/Chest: normal peripheral pulses, regular rate, rhythm, No edema Abdomen: non-tender Skin: normal color, warm/dry, No cyanosis, No diaphoresis Extremities: No pedal edema, No swelling Neuro/Psych: alert, normal mood/affect, other (Seem somewhat confused with memory issues, this was before the dizziness occurred. No diplopia or vision changes. No nystagmus) ICD10 Worksheet Patient Problems: Problems Problem Status Onset CVA (cerebral vascular accident) Acute
[2018-06-30] MEDS: GABAPENTIN 100 MG CAP PO SCH (21:02)
[2018-06-30] MEDS: ATORVASTATIN CALCIUM 40 MG TAB PO SCH (21:02)
[2018-07-01] MEDS: LEVOTHYROXINE 88 MCG TAB PO SCH (05:14)
[2018-07-01] MEDS: DICLOFENAC SODIUM 1% 100 GM GEL TP SCH ×4 (05:14→20:00)
[2018-07-01] MEDS: PANTOPRAZOLE SODIUM 40 MG TAB PO SCH (08:23)
[2018-07-01] MEDS: VENLAFAXINE XR 75 MG CAP PO SCH (08:23)
[2018-07-01] MEDS: CLOPIDOGREL BISULFATE 75 MG TAB PO SCH (08:23)
[2018-07-01] MEDS: amLODIPine BESYLATE 5 MG TAB PO SCH (08:24)
[2018-07-01] MEDS: ENOXAPARIN 40 MG/0.4 ML SYR SC SCH (08:24)
[2018-07-01] MEDS: ASPIRIN 81 MG CHEWABLE TAB PO SCH (08:24)
[2018-07-01] MEDS: LOSARTAN POTASSIUM 50 MG TAB PO SCH (08:24)
[2018-07-01] MEDS: PROPRANOLOL HCL 160 MG PO SCH (08:25)
[2018-07-01] MEDS: PREDNISOLONE ACET 0.12% LEFTEYE SCH ×2 (08:26→22:38)
[2018-07-01] MEDS: RIVASTIGMINE TD SCH (08:26)
--- NOTE | 2018-07-01 12:07 | SOAPPROG ---
SOAP Progress Note Assessment/Plan: Assessment: Cerebrovascular accident 06/10/2018 with left upper and lower extremity weakness and left hemineglect. * Initial functional independence measure is 51 on 06/15/2018. Improved to 58 as of 06/24/2018, and to 62 as of 06/29/2018. Would be 67 if she had not had an episode of fecal incontinence. Minimal to moderate assist for transfers. Ambulated 15 ft with a front wheeled walker. Has motor apraxia. Knee pain limits ambulation distance. Self propels wheelchair 50 ft with cuing and supervision. Moderate assistance for bed mobility lower body dressing it is with minimal assist, upper body dressing with supervision. * Continue PT and OT to optimize mobility and activities of daily living. Cognitive impairment. * Moderate to severe impairments of attention, communication, problem solving, judgment, safety, executive function, memory, orientation. OLOG of ; improved to 29/30 as of 06/25/2018. * Unclear whether transdermal rivastigmine has been effective. * Continue treatment per Speech and Language Pathology. Urinary incontinence. * Not improved with oxybutynin; discontinued 06/20/2018. * Treated for a UTI while she was in the hospital, and no signs or symptoms of current UTI. * In discussion 06/22/2018, patient and indicate that urinary incontinence has been going on for years and likely predates the initiation of rivastigmine. * Continue scheduled toileting. Right knee pain, possibly consistent with anserine bursitis. * Normal XR on 06/16/2018. * Continue icing prn, acetaminophen prn,. * Discontinue diclofenac 50 mg PO twice daily on 06/20/2018 due to elevated risk for GI ulceration with [place] mutant aspirin, clopidogrel and enoxaparin. * Improved with of diclofenac gel topical. Right hip/sacro-iliac joint pain. Reviewed x-rays from her hospitalization and there are no hip or pelvic fractures. Continue pain medications. May benefit from alternate strategies per PT. Secondary stroke prophylaxis. Continue aspirin and clopidogrel together for 30 days (clopidogrel through 07/10/2018) with followup with Dr. Aureliano Bowers. Continue lipid control and blood pressure control. Prednisolone ophthalmic drops. Discussed with 06/23/[address] Gonzalez regard occasion and duration of treatment. He reports that he did not prescribe the prednisolone drops but speculates that a primary quality liaison may have prescribed them p.r.n. for dry eyes. He does not think that there is any harm in using them. * Prescribed twice daily to left eye starting 06/25/2018. * reports prescriber was quality liaison Dr. Spears in [facility]. Left message for her Wednesday06/26/2018. Hypertension, adequate control. * Continue amlodipine 5 mg daily, losartan 100 mg daily, propranolol 160 mg daily. Blood pressure will be monitored. Goal is less than 140/90. Dyslipidemia. Continue atorvastatin. Dysphagia, resolved. Advanced to regular texture diet and thin liquids. Hypothyroidism, continue levothyroxine. Depression. Continue venlafaxine. Hesitate to initiate fluoxetine as per the Flame trial for hemiplegic stroke as depression has been stable on venlafaxine and she is asymptomatic at present and would not like to destabilize her emotional equilibrium. SSRI plus norepinephrine effects of venlafaxine may also enhance neuro recovery. She reports that she takes gabapentin at 100 mg at HS to help calm her. Prophylaxis. Ordered enoxaparin as she has elevated DVT risk due to left-sided weakness and reduced mobility. As she is also on aspirin and clopidogrel, ordered pantoprazole for GI protection. DISPOSITION: Concerned regarding cognition of patient as well as . They live at an independent living facility. They may need a higher level of care. Discharge date set for 07/06/2018. [facility], with eventual goal to return home with . FOLLOWUP: She has a cardiac event monitor in place and will follow up with Cardiology to evaluate for occult atrial fibrillation. She will follow up with neurologist, Dr. Aureliano Bowers, in 3-4 weeks, or with his colleagues at [facility]. Her primary care doctor is Dr. Bridger Nobles, with whom she can follow up after she discharges from inpatient rehabilitation. 07/01/18 12:04 Subjective: No complaints. Overall doing well. Still has right knee pain. Understand she will be discharging to [facility] jail facility next week. Sleeping well. Objective: Vital Signs Temp Pulse Resp BP Pulse Ox 36.8 C 74 15 133/85 H 96 07/01/18 08:20 07/01/18 08:20 07/01/18 08:20 07/01/18 08:24 07/01/18 08:20 06/30/18 07/01/18 07/02/18 05:59 05:59 05:59 Intake Total 1550 1100 240 Balance 1550 1100 240 Physical Exam - Physical Exam General Appearance: WD/WN, alert, no apparent distress Respiratory: No respiratory distress, No accessory muscle use Skin: normal color, warm/dry Neuro/Psych: alert, normal mood/affect, oriented x 3, motor weakness (Left upper and lower extremity) ICD10 Worksheet Patient Problems: Problems Problem Status Onset CVA (cerebral vascular accident) Acute
[2018-07-01] MEDS: ATORVASTATIN CALCIUM 40 MG TAB PO SCH (20:00)
[2018-07-01] MEDS: ACETAMINOPHEN 325 MG TAB PO PRN (20:00)
[2018-07-01] MEDS: GABAPENTIN 100 MG CAP PO SCH (20:00)
[2018-07-02] MEDS: DICLOFENAC SODIUM 1% 100 GM GEL TP SCH ×4 (05:11→19:52)
[2018-07-02] MEDS: LEVOTHYROXINE 88 MCG TAB PO SCH (05:11)
[2018-07-02] MEDS: amLODIPine BESYLATE 5 MG TAB PO SCH (08:26)
[2018-07-02] MEDS: ASPIRIN 81 MG CHEWABLE TAB PO SCH (08:26)
[2018-07-02] MEDS: LOSARTAN POTASSIUM 50 MG TAB PO SCH (08:26)
[2018-07-02] MEDS: VENLAFAXINE XR 75 MG CAP PO SCH (08:26)
[2018-07-02] MEDS: PANTOPRAZOLE SODIUM 40 MG TAB PO SCH (08:26)
[2018-07-02] MEDS: PREDNISOLONE ACET 0.12% LEFTEYE SCH ×2 (08:27→19:53)
[2018-07-02] MEDS: PROPRANOLOL HCL 160 MG PO SCH (08:27)
[2018-07-02] MEDS: ENOXAPARIN 40 MG/0.4 ML SYR SC SCH (08:27)
[2018-07-02] MEDS: CLOPIDOGREL BISULFATE 75 MG TAB PO SCH (08:27)
[2018-07-02] MEDS: RIVASTIGMINE TD SCH (08:28)
--- NOTE | 2018-07-02 10:15 | SOAPPROG ---
SOAP Progress Note Assessment/Plan: Assessment/Plan: Ms. Craft is a 78 y/o female with recent R hemisphere CVA. Cerebrovascular accident 06/10/2018 with left upper and lower extremity weakness and left hemineglect. * Initial functional independence measure is 51 on 06/15/2018. Improved to 58 as of 06/24/2018, and to 62 as of 06/29/2018. * Continue PT and OT to optimize mobility and activities of daily living. Cognitive impairment. * Moderate to severe impairments of attention, communication, problem solving, judgment, safety, executive function, memory, orientation. OLOG of ; improved to 29/30 as of 06/25/2018. * Unclear whether transdermal rivastigmine has been effective. * Continue treatment per Speech and Language Pathology. Urinary incontinence. * Not improved with oxybutynin; discontinued 06/20/2018. * Treated for a UTI while she was in the hospital, and no signs or symptoms of current UTI. * In discussion 06/22/2018, patient and indicate that urinary incontinence has been going on for years and likely predates the initiation of rivastigmine. * Continue scheduled toileting. Right knee pain, possibly consistent with anserine bursitis. * Normal XR on 06/16/2018. * Continue icing prn, acetaminophen prn,. * Discontinue diclofenac 50 mg PO twice daily on 06/20/2018 due to elevated risk for GI ulceration with [place] mutant aspirin, clopidogrel and enoxaparin. * Improved with of diclofenac gel topical. Right hip/sacro-iliac joint pain. Reviewed x-rays from her hospitalization and there are no hip or pelvic fractures. Continue pain medications. May benefit from alternate strategies per PT. Secondary stroke prophylaxis. Continue aspirin and clopidogrel together for 30 days (clopidogrel through 07/10/2018) with followup with Dr. Aureliano Bowers. Continue lipid control and blood pressure control. * Will leave with short script of Plavix Prednisolone ophthalmic drops. Discussed with 06/23/[address] Gonzalez regard occasion and duration of treatment. He reports that he did not prescribe the prednisolone drops but speculates that a primary hose wrapper may have prescribed them p.r.n. for dry eyes. He does not think that there is any harm in using them. * Prescribed twice daily to left eye starting 06/25/2018. * reports prescriber was hose wrapper Dr. Spears in [facility]. Left message for her Wednesday06/26/2018. Hypertension, adequate control. * Continue amlodipine 5 mg daily, losartan 100 mg daily, propranolol 160 mg daily. Blood pressure will be monitored. Goal is less than 140/90. Dyslipidemia. Continue atorvastatin. Dysphagia, resolved. Advanced to regular texture diet and thin liquids.- Tolerating Well * Monitoring pt's overall intake- 50%-100% Hypothyroidism, continue levothyroxine. Depression. Continue venlafaxine. Hesitate to initiate fluoxetine as per the Flame trial for hemiplegic stroke as depression has been stable on venlafaxine and she is asymptomatic at present and would not like to destabilize her emotional equilibrium. SSRI plus norepinephrine effects of venlafaxine may also enhance neuro recovery. She reports that she takes gabapentin at 100 mg at HS to help calm her. Prophylaxis. Ordered enoxaparin as she has elevated DVT risk due to left-sided weakness and reduced mobility. As she is also on aspirin and clopidogrel, ordered pantoprazole for GI protection. DISPOSITION: Concerned regarding cognition of patient as well as . They live at an independent living facility. They may need a higher level of care. Discharge date set for 07/04/2019. Planning discharge to assisted facility for continued therapy, with eventual goal to return home with . Subjective: Feeling good today. No problems with swallowing or appetite. no change in neurologic presentation. She is working with OT at time of visit. Still having some episodes of incontinence (mostly urine). timed voids likely minimizing amount of accidents. no new pain Objective: Vital Signs Temp Pulse Resp BP Pulse Ox 98.5 F 59 L 16 132/86 H 92 07/02/18 05:50 07/02/18 05:50 07/02/18 05:50 07/02/18 08:26 07/02/18 05:50 07/01/18 07/02/18 07/03/18 05:59 05:59 05:59 Intake Total 1100 945 240 Balance 1100 945 240 Physical Exam - Physical Exam General Appearance: alert EENT: PERRL/EOMI Respiratory: normal breath sounds, other (no respiratory distress) Cardiac/Chest: regular rate, rhythm Abdomen: normal bowel sounds, non-tender Skin: normal color Extremities: non-tender Neuro/Psych: alert, other (Slow processing, Hemineglect, left side paresis, Evidence of tone on the left hand although able to overcome with volitional activity) ICD10 Worksheet Patient Problems: Problems Problem Status Onset Krish-neglect of left side Acute Hemiparesis affecting left side as late effect of cerebrovascular accident (CVA ) Acute Incontinence of urine in female Acute CVA (cerebral vascular accident) Acute
--- NOTE | 2018-07-02 11:17 | PDOREHIP ---
Admission [facility] - Admission - 3 Day Assessment Period Admission Date/Day 1: 06/14/18 Day 2: 06/15/18 Day 3: 06/16/18 - Active Diagnoses Comorbidities and Co-existing Conditions at Admission: 60936. None of the Above Discharge [facility] - Discharge - 3 Day Assessment Period 2 Days Prior to Anticipated Discharge Date: 07/02/18 1 Day Prior to Anticipated Discharge Date: 07/03/18 Anticipated Discharge Date: 07/04/18 (Discharging SNF) - Discharge Skin Conditions Unhealed Pressure Ulcer (1 or more/Stage 1 or >)-Discharge: 0. No # Stage 1 Pressure Ulcers-Discharge: 0 # Stage 2 Pressure Ulcers-Discharge: 0 # of These Stage 2 Pressure Ulcers Present on Admission: 0 # Stage 3 Pressure Ulcers-Discharge: 0 # of These Stage 3 Pressure Ulcers Present on Admission: 0 # Stage 4 Pressure Ulcers-Discharge: 0 # of These Stage 4 Pressure Ulcers Present on Admission: 0 # Unstageable Pressure Ulcers (Non-remove Dress)-Discharge: 0 # These Unstageable Pressure Ulcers (NRD)-Present on Admit: 0 # Unstageable Pressure Ulcers (Slough/Eschar)-Discharge: 0 # These Unstageable Pressure Ulcers(Slough) Present on Admit: 0 # Unstageable Pressure Ulcers (Deep Tissue Injury)-Discharge: 0 # These Unstageable Pressure Ulcers (DTI) Present on Admit: 0
[2018-07-02] MEDS: ATORVASTATIN CALCIUM 40 MG TAB PO SCH (19:52)
[2018-07-02] MEDS: GABAPENTIN 100 MG CAP PO SCH (19:52)
[2018-07-03] MEDS: DICLOFENAC SODIUM 1% 100 GM GEL TP SCH ×4 (05:21→20:18)
[2018-07-03] MEDS: LEVOTHYROXINE 88 MCG TAB PO SCH (05:21)
[2018-07-03] MEDS: VENLAFAXINE XR 75 MG CAP PO SCH (08:32)
[2018-07-03] MEDS: CLOPIDOGREL BISULFATE 75 MG TAB PO SCH (08:32)
[2018-07-03] MEDS: PANTOPRAZOLE SODIUM 40 MG TAB PO SCH (08:32)
[2018-07-03] MEDS: LOSARTAN POTASSIUM 50 MG TAB PO SCH (08:32)
[2018-07-03] MEDS: amLODIPine BESYLATE 5 MG TAB PO SCH (08:32)
[2018-07-03] MEDS: ASPIRIN 81 MG CHEWABLE TAB PO SCH (08:32)
[2018-07-03] MEDS: ENOXAPARIN 40 MG/0.4 ML SYR SC SCH (08:32)
[2018-07-03] MEDS: PREDNISOLONE ACET 0.12% LEFTEYE SCH ×2 (08:33→20:18)
[2018-07-03] MEDS: PROPRANOLOL HCL 160 MG PO SCH (08:33)
--- NOTE | 2018-07-03 09:49 | SOAPPROG ---
SOAP Progress Note Assessment/Plan: Assessment/Plan: Ms. Craft is a 78 y/o female with recent R hemisphere CVA. Cerebrovascular accident 06/10/2018 with left upper and lower extremity weakness and left hemineglect. * Initial functional independence measure is 51 on 06/15/2018. Improved to 58 as of 06/24/2018, and to 62 as of 06/29/2018. * Continue PT and OT to optimize mobility and activities of daily living. Cognitive impairment. * Moderate to severe impairments of attention, communication, problem solving, judgment, safety, executive function, memory, orientation. OLOG of ; improved to 29/30 as of 06/25/2018. * Unclear whether transdermal rivastigmine has been effective. * Continue treatment per Speech and Language Pathology. Urinary incontinence. * Not improved with oxybutynin; discontinued 06/20/2018. * Treated for a UTI while she was in the hospital, and no signs or symptoms of current UTI. * In discussion 06/22/2018, patient and indicate that urinary incontinence has been going on for years and likely predates the initiation of rivastigmine. * Continue scheduled toileting. Right knee pain, possibly consistent with anserine bursitis. * Normal XR on 06/16/2018. * Continue icing prn, acetaminophen prn,. * Discontinue diclofenac 50 mg PO twice daily on 06/20/2018 due to elevated risk for GI ulceration with h[place] mutant aspirin, clopidogrel and enoxaparin. * Improved with of diclofenac gel topical. Right hip/sacro-iliac joint pain. Reviewed x-rays from her hospitalization and there are no hip or pelvic fractures. Continue pain medications. May benefit from alternate strategies per PT. Secondary stroke prophylaxis. Continue aspirin and clopidogrel together for 30 days (clopidogrel through 07/10/2018) with followup with Dr. Aureliano Bowers. Continue lipid control and blood pressure control. * Will leave with short script of Plavix Prednisolone ophthalmic drops. Discussed with 06/23/[address] Gonzalez regard occasion and duration of treatment. He reports that he did not prescribe the prednisolone drops but speculates that a primary calender operator may have prescribed them p.r.n. for dry eyes. He does not think that there is any harm in using them. * Prescribed twice daily to left eye starting 06/25/2018. * reports prescriber was calender operator Dr. Spears in [facility]. Should f/u in next couple of weeks after discharge Hypertension, adequate control. * Continue amlodipine 5 mg daily, losartan 100 mg daily, propranolol 160 mg daily. Blood pressure will be monitored. Goal is less than 140/90. Dyslipidemia. Continue atorvastatin. Dysphagia, resolved. Advanced to regular texture diet and thin liquids.- Tolerating Well * Monitoring pt's overall intake- 50%-100% Hypothyroidism, continue levothyroxine. Depression. Continue venlafaxine. Hesitate to initiate fluoxetine as per the Flame trial for hemiplegic stroke as depression has been stable on venlafaxine and she is asymptomatic at present and would not like to destabilize her emotional equilibrium. SSRI plus norepinephrine effects of venlafaxine may also enhance neuro recovery. She reports that she takes gabapentin at 100 mg at HS to help calm her. Prophylaxis. Ordered enoxaparin as she has elevated DVT risk due to left-sided weakness and reduced mobility. As she is also on aspirin and clopidogrel, ordered pantoprazole for GI protection. Will d/c lovenox at time of d/c - will have been on this medication for 3 weeks by this time. Still has reduced mobility although is nearly 4 weeks from injury. Will continue plavix/ASA. DISPOSITION: Concerned regarding cognition of patient as well as . They live at an independent living facility. They may need a higher level of care. Discharge date set for 07/04/2019. Planning discharge to residential facility for continued therapy, with eventual goal to return home with . 07/03/18 09:45 Subjective: Feeling good today - Improved social interaction. Tolerating her food well and has good appetite. Feeling somewhat frustrated with her left side - hoping to see great improvements over the next several weeks to months. A little apprehensive about the transition to new facility. no new pain, no change in neurologic status. no CP/SOB. Objective: Vital Signs Temp Pulse Resp BP Pulse Ox 98.0 F 58 L 16 131/74 H 92 07/03/18 06:09 07/03/18 06:09 07/03/18 06:09 07/03/18 08:32 07/03/18 06:09 07/02/18 07/03/18 07/04/18 05:59 05:59 05:59 Intake Total 945 1060 360 Output Total 1 Balance 945 1060 359 Physical Exam - Physical Exam General Appearance: alert, no apparent distress Neck: non-tender Respiratory: lungs clear, normal breath sounds Cardiac/Chest: regular rate, rhythm Abdomen: normal bowel sounds, non-tender Skin: normal color Neuro/Psych: alert, other (left sided krish-neglect - able to correct volitionally. left sided hemiparesis) ICD10 Worksheet Patient Problems: Problems Problem Status Onset Krish-neglect of left side Acute Hemiparesis affecting left side as late effect of cerebrovascular accident (CVA ) Acute Incontinence of urine in female Acute CVA (cerebral vascular accident) Acute
--- NOTE | 2018-07-03 09:54 | PDDCSUM ---
Discharge Summary Discharge Summary: General Discharge Summary Admission Location - [facility] Date of Admission:06/14/18 Date of Discharge: 07/04/18 Disposition: [facility] Will require ongoing support from PT/OT/LEAD MINER Limitations/Precautions: continues to be a fall risk 2/2 CVA - including hemineglect and hemiparesis. ADMITTING DIAGNOSIS: Multifocal CVA DISCHARGE DIAGNOSIS: Multifocal CVA - More prevalent left sided impairment Hospital Course by Diagnosis: CVA - Pt was seen by Dr. Bey with [facility] while at the acute hospital. Pt had weakness for several days prior to admission and thus was not provided with tPA at time of admission. From initial H&P - "There, an MRI of the brain showed bilateral patchy multifocal infarcts with concern for an embolic source. She had a CT angiogram of the head and neck, and there was no stenosis of the carotid or intracranial arteries. A transthoracic echo was done which showed mild atrial and tricuspid regurgitation, but was otherwise a normal study with no embolic source. She did not have atrial fibrillation on telemetry while in the hospital." She is currently wearing an event monitor and should have f/u with [facility] in the next 1-2 weeks. Cognitive impairment. Moderate to severe impairments of attention, communication, problem solving, judgment, safety, executive function, memory, orientation. OLOG of 23/30; improved to 29/30 as of 06/25/2018. Was already taking Rivastigmine prior to this hospitalization. Will benefit from ongoing LEAD MINER to maximize functional improvement. Urinary incontinence. Not improved with oxybutynin; discontinued 06/20/2018 - She had history of incontinence - especially through the night prior to the current stroke. Scheduled toileting through the day with pretty good success. Using night pads and other methods to support patient through the night. No associated skin breakdown. Right knee pain/ Right hip/sacro-iliac joint pain. Xrays without fractures - some arthritis. Worked with PT for strategies and continued to Ice and place Voltaren gel over knee. Should be able to transition to PRN vs off as she continues to improve. Prednisolone ophthalmic drops. Discussed with 06/23/[address] Gonzalez regard occasion and duration of treatment. He reports that he did not prescribe the prednisolone drops but speculates that a primary bowling ball grader may have prescribed them p.r.n. for dry eyes. He does not think that there is any harm in using them. Prescribed twice daily to left eye starting 06/25/2018. - reports prescriber was bowling ball grader Dr. Spears in [facility]. Should f/u in next couple of weeks after discharge Hypertension- Pt was being treated for Hypertension prior to her injury. Per review of home meds provided by - there were a couple of changes made to provide better control of her BP. Her losartan was increased to 100mg ( was on 50mg prior) and a small dose of amlodipine was added (5mg). Continue to monitor as patient may be able to have meds simplified. Dyslipidemia. Atorvastatin was added as a result of the current CVA. She should continue with this medications Dysphagia - initially did require dietary modifications. She worked with LEAD MINER during her time on Acute Rehab and eventually graduated to a full diet - She tolerated this well and was doing well with intake at time of discharge. Hypothyroidism. This predated this stroke - She was continued on her home dose of levothyroxine - no changes were made Depression. She has a h/o depression and already on Venlafaxine. There was a consideration to transition patient to Fluoxetine as per the FLAME trial although given great mood stability and had been for some time while on the venlafaxine - it was determined to continue same dosing. Pt's mood remained stable throughout her hospitalization. CONSULTATIONS: Juve to Dr. Gonzalez - retinal specialist - regarding eyedrops. He did NOT evaluate the patient. COMPLICATIONS: There were none. PROCEDURES: There were none. Discharge Medications: please see Discharge MAR Follow Up needed: Ophthamology - Dr. Lois Spears - [facility] Op[facility] - 1-2 weeks - Please schedule Neurology - Dr. Aureliano Bey - [facility] - 1-2 weeks. Currently wearing an event monitor - Please schedule PCP - Dr. Bridger Nobles - 2-4 weeks. Please schedule - [phone] Cardiology - Case management to provide appointment information - Event monitor scheduled until the 14 of July
[2018-07-03] MEDS: RIVASTIGMINE TD SCH (09:58)
[2018-07-03] MEDS: GABAPENTIN 100 MG CAP PO SCH (20:18)
[2018-07-03] MEDS: ATORVASTATIN CALCIUM 40 MG TAB PO SCH (20:18)
[2018-07-04] MEDS: LEVOTHYROXINE 88 MCG TAB PO SCH (05:58)
[2018-07-04] MEDS: DICLOFENAC SODIUM 1% 100 GM GEL TP SCH ×2 (05:58→12:25)
[2018-07-04 06:21] VITALS: BP 123/66
--- NOTE | 2018-07-04 08:38 | SOAPPROG ---
SOAP Progress Note Assessment/Plan: Assessment/Plan: Ms. Craft is a 78 y/o female with R hemisphere CVA 06/10/18 Cerebrovascular accident 06/10/2018 with left upper and lower extremity weakness and left hemineglect. * Initial functional independence measure is 51 on 06/15/2018. Improved to 58 as of 06/24/2018, and to 62 as of 06/29/2018. * Continue PT and OT to optimize mobility and activities of daily living. Cognitive impairment. * Moderate to severe impairments of attention, communication, problem solving, judgment, safety, executive function, memory, orientation. OLOG of ; improved to 29/30 as of 06/25/2018. * Unclear whether transdermal rivastigmine has been effective. * Continue treatment per Speech and Language Pathology. Urinary incontinence. * Not improved with oxybutynin; discontinued 06/20/2018. * Treated for a UTI while she was in the hospital, and no signs or symptoms of current UTI. * In discussion 06/22/2018, patient and indicate that urinary incontinence has been going on for years and likely predates the initiation of rivastigmine. * Continue scheduled toileting. Right knee pain, possibly consistent with anserine bursitis. * Normal XR on 06/16/2018. * Continue icing prn, acetaminophen prn,. * Discontinue diclofenac 50 mg PO twice daily on 06/20/2018 due to elevated risk for GI ulceration with [place] mutant aspirin, clopidogrel and enoxaparin. * Improved with of diclofenac gel topical. Right hip/sacro-iliac joint pain. Reviewed x-rays from her hospitalization and there are no hip or pelvic fractures. Continue pain medications. May benefit from alternate strategies per PT. Secondary stroke prophylaxis. Continue aspirin and clopidogrel together for 30 days (clopidogrel through 07/10/2018) with followup with Dr. Aureliano Bowers. Continue lipid control and blood pressure control. * Will leave with short script of Plavix Prednisolone ophthalmic drops. Discussed with 06/23/[address] Gonzalez regard occasion and duration of treatment. He reports that he did not prescribe the prednisolone drops but speculates that a primary lead inspector may have prescribed them p.r.n. for dry eyes. He does not think that there is any harm in using them. * Prescribed twice daily to left eye starting 06/25/2018. * reports prescriber was lead inspector Dr. Spears in [facility]. Ms. Craft reporting that now following with a physician closer to [place]. they will arrange the f/u after discharge. Hypertension, adequate control. * Continue amlodipine 5 mg daily, losartan 100 mg daily, propranolol 160 mg daily. Blood pressure will be monitored. Goal is less than 140/90. Dyslipidemia. Continue atorvastatin. Dysphagia, resolved. Advanced to regular texture diet and thin liquids.- Tolerating Well * Monitoring pt's overall intake- 50%-100% Hypothyroidism, continue levothyroxine. Depression. Continue venlafaxine. Hesitate to initiate fluoxetine as per the Flame trial for hemiplegic stroke as depression has been stable on venlafaxine and she is asymptomatic at present and would not like to destabilize her emotional equilibrium. SSRI plus norepinephrine effects of venlafaxine may also enhance neuro recovery. She reports that she takes gabapentin at 100 mg at HS to help calm her. Prophylaxis. Ordered enoxaparin as she has elevated DVT risk due to left-sided weakness and reduced mobility. As she is also on aspirin and clopidogrel, ordered pantoprazole for GI protection. Will d/c lovenox at time of d/c - will have been on this medication for 3 weeks by this time. Still has reduced mobility although is nearly 4 weeks from injury. Will continue plavix/ASA. DISPOSITION: Concerned regarding cognition of patient as well as . They live at an independent living facility. They may need a higher level of care. Discharge date set for 07/04/2019. [facility], with eventual goal to return home with . 07/04/18 08:35 Subjective: Feeling very good this morning - She has been hoping for snow and excited for all the snow that is coming in. NO new pain, no new neurologic concerns. Still with some episodes of night time incontinence. Appetite is good. Objective: Vital Signs Temp Pulse Resp BP Pulse Ox 98.4 F 61 16 123/66 H 94 07/04/18 06:20 07/04/18 06:20 07/04/18 06:20 07/04/18 06:20 07/04/18 06:20 07/03/18 07/04/18 07/05/18 05:59 05:59 05:59 Intake Total 1060 1140 Output Total 1 Balance 1060 1139 Physical Exam - Physical Exam General Appearance: alert, no apparent distress EENT: PERRL/EOMI Respiratory: chest non-tender, lungs clear Cardiac/Chest: regular rate, rhythm Abdomen: non-tender, soft Neuro/Psych: alert, normal mood/affect ICD10 Worksheet Patient Problems: Problems Problem Status Onset Krish-neglect of left side Acute Hemiparesis affecting left side as late effect of cerebrovascular accident (CVA ) Acute Incontinence of urine in female Acute CVA (cerebral vascular accident) Acute
[2018-07-04] MEDS: CLOPIDOGREL BISULFATE 75 MG TAB PO SCH (09:00)
[2018-07-04] MEDS: VENLAFAXINE XR 75 MG CAP PO SCH (09:00)
[2018-07-04] MEDS: ENOXAPARIN 40 MG/0.4 ML SYR SC SCH (09:01)
[2018-07-04] MEDS: ACETAMINOPHEN 325 MG TAB PO PRN (09:01)
[2018-07-04] MEDS: PANTOPRAZOLE SODIUM 40 MG TAB PO SCH (09:01)
[2018-07-04] MEDS: LOSARTAN POTASSIUM 50 MG TAB PO SCH (09:01)
[2018-07-04] MEDS: amLODIPine BESYLATE 5 MG TAB PO SCH (09:01)
[2018-07-04] MEDS: ASPIRIN 81 MG CHEWABLE TAB PO SCH (09:01)
[2018-07-04] MEDS: PREDNISOLONE ACET 0.12% LEFTEYE SCH (09:02)
[2018-07-04] MEDS: PROPRANOLOL HCL 160 MG PO SCH (09:02)
[2018-07-04] MEDS: RIVASTIGMINE TD SCH (09:02)
== END 2018-07-04 14:13 | DRG 57 ==
LOC: BREH 13:50
PROVIDERS: ADMIT Internal Medicine Hospice and Palliative Medicine; ATTEND Internal Medicine Hospice and Palliative Medicine
PROC: F0636ZZ Communicative/Cognitive Integration Skills Treatment of Neurological System - Whole Body (ICD-10-PCS; principal; 2018-06-14)
PROC: F08Z7ZZ Vocational Activities and Functional Community or Work Reintegration Skills Treatment (ICD-10-PCS; principal; 2018-06-14)
PROC: F07M3ZZ Motor Function Treatment of Musculoskeletal System - Whole Body (ICD-10-PCS; principal; 2018-06-14)
DX: I69.354 Hemiplegia and hemiparesis following cerebral infarction affecting left non-dominant side (principal); I69.391 Dysphagia following cerebral infarction; R32 Unspecified urinary incontinence; I10 Essential (primary) hypertension; E78.5 Hyperlipidemia, unspecified; E03.9 Hypothyroidism, unspecified; F32.9 Major depressive disorder, single episode, unspecified; M70.51 Other bursitis of knee, right knee; I07.1 Rheumatic tricuspid insufficiency
CPT/HCPCS: 92507-GN; 92508-GN; 92523-GN; 92610-GN; 97110-GO; 97110-GP; 97112-GO; 97112-GP; 97116-GP; 97162-GP; 97166-GO; 97530-GO; 97530-GP; 97535-GO; 97542-GP; G0515-GO; J1650

== ENCOUNTER 2018-07-04 12:28 | Emergency (ER) | payer OTHER, MEDICARE ==
--- NOTE | 2018-07-04 12:39 | EDPHY ---
H & P Time Seen by Provider: 07/04/18 12:38 HPI/ROS: HPI: This is a 78-year-old female who presents with Chief Complaint: Foreign body in left ear Location: Left ear Quality: Foreign body Duration: Since yesterday evening Signs and Symptoms: no fever, no nausea, no vomiting, no photophobia, no noise sensitivity, no neck stiffness, no ear pain, no tinnitus, no nasal congestion, no sinus pressure, no weakness, no radiation, no aura Timing: Acute Severity: Mild Context: Modifying Factors: Comment: ROS: A comprehensive 10 system review of systems is otherwise negative aside from elements mentioned in the history of present illness. MEDICAL/SURGICAL/SOCIAL HISTORY: Medical history: Hypothyroidism, hypertension, coronary artery disease, hyperlipidemia, hard of hearing Surgical history: Denies Social history: Retired, . Family history noncontributory. CONSTITUTIONAL: Polite and cooperative elderly white female, awake and alert, no obvious distress HEENT: Atraumatic and normocephalic, PERRL, EOMI. Nares patent; no rhinorrhea; no nasal mucosal edema. Left EAC shows small hearing aid battery presents; Tympanic membranes clear. Oropharynx clear, no exudate and moist pink mucosa. Airway patent. No lymphadenopathy. No meningismus. Cardiovascular: Normal S1/S2, regular rate, regular rhythm, without murmur rub or gallop. PULMONARY/CHEST: Symmetrical and nontender. Clear to auscultation bilaterally. Good air movement. No accessory muscle usage. ABDOMEN: Soft, nondistended, nontender, no rebound, no guarding, no peritoneal signs, no masses or organomegaly. No CVAT. EXTREMITIES: 2/2 pulses, strength 5/5, no deformities, no clubbing, no cyanosis or edema. NEUROLOGICAL: no focal neuro deficits. GCS 15. SKIN: Warm and dry, pallor, no erythema. no rash. Good capillary refill. Source: Patient Exam Limitations: No limitations - Medical/Surgical History Hx Asthma: No Hx Chronic Respiratory Disease: No Hx Diabetes: No Hx Cardiac Disease: No Hx Renal Disease: No Hx Cirrhosis: No Hx Alcoholism: No Hx HIV/AIDS: No Hx Splenectomy or Spleen Trauma: No - Social History Smoking Status: Never smoked Constitutional: Initial Vital Signs Temperature (C) 36.9 C 07/04/18 12:36 Heart Rate 61 07/04/18 12:36 Respiratory Rate 16 07/04/18 12:36 Blood Pressure 120/69 07/04/18 12:36 O2 Delivery Mode Room Air Allergies/Adverse Reactions: No Known Allergies Allergy (Unverified 06/14/18 13:28) Home Medications: Medication Instructions Recorded Acetaminophen [Tylenol 325mg (*)] 650 mg PO Q4HRS PRN #30 tab 07/02/18 Aspirin [Aspirin 81mg (*)] 81 mg PO DAILY #30 tab.chew 07/02/18 Atorvastatin Calcium [Lipitor 40 40 mg PO HS #30 tab 07/02/18 mg (*)] Clopidogrel Bisulfate [Plavix (*)] 75 mg PO DAILY #6 tab 07/02/18 Diclofenac Sodium 1% [Voltaren Gel 2 gm TP QID #30 gel 07/02/18 (*)] Gabapentin [Neurontin 100 MG (*)] 100 mg PO DAILY #30 cap 07/02/18 Levothyroxine [Synthroid 88 mcg 88 mcg PO DAILY06 #30 tab 07/02/18 (*)] Losartan Potassium 100 mg PO DAILY #30 tablet 07/02/18 Pantoprazole Sodium [Protonix 40mg 40 mg PO DAILY #14 tab 07/02/18 (*)] Propranolol HCl [Inderal Xl] 160 mg PO DAILY #30 cap.er.24h 07/02/18 Rivastigmine [Exelon 9.5mg/24 hrs] 1 each TD DAILY #30 patch.td24 07/02/18 Venlafaxine HCl [Venlafaxine HCl 75 mg PO DAILY@08 #30 cap.er.24h 07/02/18 ER] amLODIPine BESYLATE [Amlodipine 5 mg PO DAILY #30 tablet 07/02/18 Besylate] prednisoLONE ACET 0.12% [Pred Mild 1 drops LEFTEYE BID #30 opht.btl 07/02/18 0.12%] Medical Decision Making Procedures: Procedure: Foreign body removal from left external auditory canal. Anesthesia: None required After verbal consent was obtained, the hearing aid battery was removed from left external auditory canal. The foreign body was removed manually with forceps under direct visualization. Tympanic membrane intact. There were no complications. The procedure was performed by myself. ED Course/Re-evaluation: Vital signs reviewed and stable upon arrival. Hearing aid battery removed with 1st attempt No signs of otitis media, otitis externa, TM perforation This patient was seen under the supervision of my secondary supervising physician. I evaluated care for this patient independently. Discussed this patient with Dr. Lopez who did not see the patient. Differential Diagnosis: Differential diagnosis includes but is not limited to ear foreign body. Departure - Departure Disposition: Home, Routine, Self-Care Clinical Impression: Ear foreign body Qualifiers: Encounter type: initial encounter Laterality: left Qualified Code(s): T16.2XXA - Foreign body in left ear, initial encounter Condition: Good Instructions: Ear Foreign Body (ED) Additional Instructions: Return at once for any worsening symptoms or concerns. Referrals: Patient,NotPresent [Primary Care Provider] - As per Instructions
--- NOTE | 2018-07-04 13:42 | ASMTCMCOM ---
CM Note CM Note Notes: Pt presented to the ED from [facility]patient Rehab via WC transport van (provided by [facility]) due to having a hearing aide stuck in her ear. Pt was d/c'd from Inpt Rehab today and on her way to [facility]. Pt's Don at bedside and states that [facility] for their [facility] transport van to come and transport pt to [facility] around 1430. This CM called pt and Don's place of residence, [facility] ([phone]) to let them know that their transport staff does not need to return to the ED. CM available for further assistance if needed. Date Signed: 07/04/2018 01:42 PM Electronically Signed By:Cora Christopher RN
[2018-07-04 14:04] VITALS: BP 132/76
== END 2018-07-04 14:02 | disposition home or self-care (01) ==
LOC: EDUNIT#
PROC: 09C47ZZ Extirpation of Matter from Left External Auditory Canal, Via Natural or Artificial Opening (ICD-10-PCS; principal; 2018-07-04)
DX: T16.2XXA Foreign body in left ear, initial encounter (principal); Y92.9 Unspecified place or not applicable